=== PATIENT | male | born 1970 | race Hispanic/Latino ===

== ENCOUNTER 2020-04-14 08:10 | Inpatient (IN) | payer MEDICAID, OTHER ==
[~2020-04-14] VITALS: Ht 162.6 cm; Wt 63.2 kg
[2020-04-14] VITALS (7 sets, daily range): BP systolic 111–122; BP diastolic 67–73
[2020-04-14] MEDS ORDERED: PANTOPRAZOLE 40MG VIAL (C9113 PER 1) IV ONE (08:30)
[2020-04-14] MEDS ORDERED: THIAMINE 200MG/2ML VIAL (J3411 PER 100MG) IV SCH (09:00)
[2020-04-14 09:03] LABS: BASO % 0.6 % (0.0-1.0); HEMATOCRIT 27.1 % (42.0-52.0); HEMOGLOBIN 8.6 g/dl (13.5-17.5); LYMPH # 0.9 10^3/uL (1.5-5.0); LYMPH % 14.4 % (24.0-44.0); MEAN CORPUSCULAR HEMOGLOBIN 26.8 pg (27.0-33.0); MEAN CORPUSCULAR HGB CONC 31.7 g/dl (32.0-36.5); MEAN CORPUSCULAR VOLUME 84.4 fl (80.0-96.0); MONO # 0.2 10^3/uL (0.0-0.8); MONO % 3.5 % (0.0-5.0); NEUTROPHILS # 5.1 10^3/uL (1.5-8.5); NEUTROPHILS % 80.9 % (36.0-66.0); PLATELET COUNT, AUTOMATED 106 10^3/uL (150-450); RED BLOOD COUNT 3.21 10^6/uL (4.30-6.10); WHITE BLOOD COUNT 6.3 10^3/uL (4.0-10.0)
[2020-04-14 09:26] LABS: INR 1.37; PROTHROMBIN TIME 17.2 SECONDS (12.5-14.3)
[2020-04-14] MEDS ORDERED: PANT40TA29 PO (09:26)
[2020-04-14 09:28] LABS: ALBUMIN 2.8 GM/DL (3.2-5.2); ALT/SGPT 47 U/L (12-78); BILIRUBIN,DIRECT 0.5 MG/DL (0.0-0.2); BILIRUBIN,TOTAL 0.8 MG/DL (0.2-1.0); CK-MB VALUE MASS < 1.0 NG/ML (<3.6); CPK CREATINE PHOSPHOKINASE 95 U/L (39-308); LIPASE 45 U/L (73-393); MB/CK RELATIVE INDEX 1.05 (< OR =4); TOTAL PROTEIN 7.1 GM/DL (6.4-8.2); TROPONIN I < 0.02 NG/ML (< 0.10)
[2020-04-14] MEDS ORDERED: NS 1,000 ML IV ONE (09:45)
[2020-04-14] MEDS: PANTOPRAZOLE SODIUM 40 MG in D5W 50 ML IV SCH ×4 (09:55→23:23)
[2020-04-14] MEDS ORDERED: LORazepam 2 MG/ML VIAL IV STA (10:02)
[2020-04-14 13:19] LABS: HEMATOCRIT 27.5 % (42.0-52.0); MEAN CORPUSCULAR HEMOGLOBIN 27.2 pg (27.0-33.0); MEAN CORPUSCULAR HGB CONC 32.7 g/dl (32.0-36.5); MEAN CORPUSCULAR VOLUME 83.1 fl (80.0-96.0); RED BLOOD COUNT 3.31 10^6/uL (4.30-6.10); WHITE BLOOD COUNT 7.4 10^3/uL (4.0-10.0)
[2020-04-14 14:08] LABS: PLATELET COUNT, AUTOMATED 84 10^3/uL (150-450)
[2020-04-14] MEDS ORDERED: NS 1,000 ML IV SCH (14:15)
--- NOTE | 2020-04-14 14:35 | REP ---
INDICATION: history of rib facture, acute Pain in same location.. COMPARISON: None. TECHNIQUE: Sitting AP portable exam. FINDINGS: The lungs are symmetrically aerated and clear. The pleural angles are sharp. Heart is not enlarged. Monitoring electrodes are seen. Pulmonary vasculature is not increased.3 no rib or other fractures visible. IMPRESSION: Negative portable chest x-ray. <Electronically signed by Cristi Sharpe > 04/14/20 0473
--- NOTE | 2020-04-14 14:50 | REP ---
INDICATION: upper GI bleed COMPARISON: None. TECHNIQUE: Standard right upper quadrant ultrasound techniques were utilized. FINDINGS: Liver shows diffuse heterogeneous coarse echotexture and I suspect some mild hepatomegaly. There is no discrete hepatic mass, intrahepatic biliary dilatation no adjacent ascites. Gallbladder is adequately filled without stone, sludge, wall thickening or pericholecystic fluid. Common duct is 3.7 mm and without a filling defect or stone. Pancreas is obscured by extensive gas shadowing and cannot be evaluated. The right kidney is 12.5 x 3.7 x 3.3 cm. Normal cortical echogenicity and thickness no mass, hydronephrosis or visible stone. No perinephric fluid. No generalized ascites. IMPRESSION: 1. Diffuse coarsened echotexture and heterogeneous appearance of the liver most consistent with some chronic liver disease. No hepatic mass, intrahepatic biliary dilatation or ascites. Possible hepatomegaly. 2. Gallbladder grossly intact and the common duct 3.7 mm, normal. 3. Pancreas obscured by gas shadowing and cannot be evaluated. 4. Right kidney unremarkable. <Electronically signed by Ankur Alexis > 04/14/20 [id number]
[2020-04-14] MEDS ORDERED: FOLIC ACID 1 MG in NS 50 ML IV SCH (16:00)
[2020-04-14] MEDS ORDERED: LORazepam 2 MG TAB PO PRN (16:15)
[2020-04-14] MEDS: OCTREOTIDE ACETATE 100MCG/ML VIAL (J2354 PER 25MCG) IV SCH ×2 (16:18→23:23)
[2020-04-14] MEDS: cefTRIAXone SOD 1 GM in D5W MINI-BAG PLUS 50 ML IV SCH (16:19)
[2020-04-14] MEDS: MULTIVITAMINS/MINERALS THERAP 1 TAB PO SCH (16:24)
--- NOTE | 2020-04-14 16:24 | HPEPDOC ---
General Date of Admission Apr 14, 2020 at 12:30 Date of Service: Apr 14, 2020 Attending Physician: CLAUDE HERNANDEZ MD Chief Complaint The patient is a 49-year-old male admitted with a reason for visit of Gi Bleed. Source: Patient Exam Limitations: No limitations History of Present Illness Presenting compliant: History of present illness: 49-year-old male patient who presented to the emergency department with complaining of nausea. He reports having multiple episodes of bloody vomiting since yesterday afternoon 3PM to today the morning 3 AM. He says it all started after his hit him in the right chest region while massaging as he was having pain in that region. He reports his last drink of alcohol was about 3pm when all this started. He denies taking any medication, and his hematemesis came down but the nausea persisted. He states he had an similar episode in the past 6 months ago and had an EGD done in [facility]. Reports having one episode of dark stool this morning, prior to this episode also has normal stool. He denies taking NSAIDs or PPI. Pertinent negative symptoms: Denies having Headache, chest pain, abdominal pain, diarrhea, constipation, hematochezia. Past medical history: Has no medical comorbidities Past surgery history: None per patient. Medications history: Does not take any medications, nor over the counter medications. Social history: Reports drinking 1/5th bottle of vodka and 2-3 beers daily since age 18, but didn't drink when he was in [facility] for 8 years. Smokes 5 cigarettes per day since age 16, and smokes marijuana one joint per day since 18years. 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 Family History: Father and mother are healthy, no medical issues. siblings: 2 brothers and 2 sisters: healthy, no medical conditions. 4 sons: healthy Allergies: denies having any. REVIEW OF SYSTEMS: Constitutional: Denies having fever, chills, night sweats, weight loss, headaches. Eyes: Denies any blurry vision or double vision. Cardiovascular: Denies any chest pain or palpitations. Respiratory: Denies shortness of breath and cough. Gastrointestinal (GI): As per H & P Genitourinary: Denies dysuria, hematuria. Musculoskeletal: reports having pain over right lateral chest. Per patient he had #rib in that region. Skin: Denies any rashes or ulcers. Endocrine: Denies cold intolerance, heat intolerance, polydipsia, polyphagia, polyuria All other review of systems is negative. PHYSICAL EXAMINATION: Vital Signs: Temperature: 99.4 Pulse:119 RR:18 BP:119/63 mm Hg Oxygen saturation %: 100 on RA General: Patient is awake, alert, oriented times three, laying in bed , no apparent distress. Noted some dried blood over his right eyebrow patient reports hitting a side table at night when he woke up to vomit. Eyes: Conjunctiva clear, pupils equal round and reactive to light. ENT: Hearing Bilateral normal. No nasal deviation, oropharynx clear with no les ions/erythema. Cardiovascular: S1, S2, normal rhythm, no murmur, rub, or gallop Respiratory: Chest is clear to auscultation bilaterally,No rhonchi, wheezes or rubs. Tenderness on palpation and rolling over in mid thoracic right lateral extending to anterior mid clavicular line. He reports he had a rib# in that region in the past. Abdomen: Soft, bowel sounds positive, no bruits. Nontender on palpation. Liver edge can be felt, spleen, kidney not felt, no masses. Extremities: No clubbing or cyanosis. No edema, no tenderness. 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 Skin: He has multiple hyperpigmented spots in the back, he reports its from acne. No lesions, ulcerations, subcutaneous nodules or induration. Assessment: Mr. Lott is a 49 year old male patient with no known comorbidities presented to the ED due to nausea and multiple episodes of hematemesis in past 24hrs. Plan: Upper GI bleed: 2/2 to PUD vs gastritis vs Jane wolf tear vs oesophageal varices . - Patients Hb was 8.6 and he had 1 unit of blood transfused in ED his repeat CBC shows Hb of 9. - Continue monitoring CBC Q12h, for any drop in Hb and BMP. - His Labs in ED BUN 12, Creatinine 0.7, total bilirubin 0.8, direct 0.5, AST 113, ALT 47, ALP 91. - Will order liver USG to look for any change. - Will start Protonix drip 40mg and Octreotide drip. - Will give ceftriaxone 1gm IV Q24hr for SBP prophylaxis. - Will start thiamine, folic acid and CIWA protocol. - Keep a watch for alcohol withdrawal symptoms. - Will keep him on clear liquid diet for now. - Will start Carafate. - Will get a hepatitis panel to rule out hepatitis A, B or C. - Will get a Cxray as patient was complaining of chest pain and has a rib # in that location. - Patient was made aware he will need a EGD done in order to find out what is the cause of his bleeding, but he refused it. Off note: As patient reports to have similar episode 6 months ago and had EGD done, will try to obtain records to look for if he had any varices then. Home Medications Scheduled Pantoprazole Sodium (Pantoprazole Sodium) 40 Mg Tablet.dr, 40 MG PO BID Allergies Coded Allergies: No Known Allergies (Verified Allergy, Unknown, 04/14/20) A-FIB/CHADSVASC A-FIB History Current/History of A-Fib/PAF?: No Current PO Anticoag Therapy: No Vital Signs Vital Signs Date Time Temp Pulse Resp B/P (MAP) Pulse Ox O2 Delivery O2 Flow Rate FiO2 04/14/20 14:15 99.4 119 18 119/63 (81) 100 Room Air Laboratory Data Labs 24H Laboratory Tests 2 04/14/20 08:30: Immature Granulocyte % (Auto) 0.6, Neutrophils (%) (Auto) 80.9H, Lymphocytes (%) (Auto) 14.4L, Monocytes (%) (Auto) 3.5, Eosinophils (%) (Auto) 0.0, Basophils (%) (Auto) 0.6, Neutrophils # (Auto) 5.1, Lymphocytes # (Auto) 0.9L, Monocytes # (Auto) 0.2, Eosinophils # (Auto) 0.0, Basophils # (Auto) 0.0, Nucleated Red Blood Cells % (auto) 0.0, Prothrombin Time 17.2H, Prothromb Time International Ratio 1.37, Total Bilirubin 0.8, Direct Bilirubin 0.5H, Aspartate Amino Transf (AST/SGOT) 113H, Alanine Aminotransferase (ALT/SGPT) 47, Alkaline Phosphatase 91, Total Creatine Kinase 95, Creatine Kinase MB < 1.0, Creatine Kinase MB R elative Index 1.05, Troponin I < 0.02, Total Protein 7.1, Albumin 2.8L, Albumin/Globulin Ratio 0.7, Lipase 45L 04/14/20 08:52: POC Glucose (Misc Panel) 137H, POC Sodium (Misc Panel) 139, POC Potassium (Misc Panel) 3.6, POC Chloride (Misc Panel) 101, POC Total CO2 (Misc Panel) 23.0, POC Blood Urea Nitrogen (Misc Panel 12, POC Ionized Calcium (Misc Panel) 3.7L, POC Creatinine (Misc Panel) 0.7, POC Hematocrit (Misc Panel) 30.0L 04/14/20 13:03: Nucleated Red Blood Cells % (auto) 0.0, Immature Platelet Fraction 2.0 CBC/BMP Laboratory Tests 04/14/20 08:30 04/14/20 13:03 Plan / VTE VTE Prophylaxis Ordered?: No GME ATTESTATION GME ATTESTATION My faculty preceptor for this patient encounter was physically present during the encounter and was fully available. All aspects of the patient interview, examination, medical decision making process, and medical care plan development were reviewed and approved by the faculty preceptor. The faculty preceptor is aware and concurs with the plan as stated in the body of this note and will attest to such by his/her cosignature. ATTENDING NOTE Patient was seen and examined by me personally with the residents/students. I agree with the above assessment and plan Tato Ruggiero MD Apr 14, 2020 16:24 CLAUDE HERNANDEZ MD Apr 18, 2020 11:46
[2020-04-14] MEDS: SUCRALFATE 1 GM TAB PO SCH ×2 (17:13→23:17)
[2020-04-14 18:40] LABS: HEMATOCRIT 30.3 % (42.0-52.0); HEMOGLOBIN 9.9 g/dl (13.5-17.5); MEAN CORPUSCULAR HEMOGLOBIN 26.9 pg (27.0-33.0); MEAN CORPUSCULAR HGB CONC 32.7 g/dl (32.0-36.5); MEAN CORPUSCULAR VOLUME 82.3 fl (80.0-96.0); RED BLOOD COUNT 3.68 10^6/uL (4.30-6.10); WHITE BLOOD COUNT 7.7 10^3/uL (4.0-10.0)
[2020-04-14 18:42] LABS: PLATELET COUNT, AUTOMATED 66 10^3/uL (150-450)
[2020-04-14 19:47] LABS: HEPATITIS A ANTIBODY IGM NEGATIVE (NEGATIVE); HEPATITIS B CORE ANTIBODY IGM NEGATIVE (NEGATIVE); HEPATITIS B SURFACE ANTIGEN NEGATIVE (NEGATIVE); HEPATITIS C VIRUS ABY INDEX 0.1 INDEX (<0.8)
[2020-04-14] MEDS ORDERED: THIAMINE 100 MG TAB PO SCH (21:00)
[2020-04-15] VITALS (8 sets, daily range): BP systolic 114–146; BP diastolic 59–80
[2020-04-15 02:46] LABS: HEMATOCRIT 27.7 % (42.0-52.0); HEMOGLOBIN 9.2 g/dl (13.5-17.5); MEAN CORPUSCULAR HEMOGLOBIN 26.9 pg (27.0-33.0); MEAN CORPUSCULAR HGB CONC 33.2 g/dl (32.0-36.5); RED BLOOD COUNT 3.42 10^6/uL (4.30-6.10); WHITE BLOOD COUNT 5.8 10^3/uL (4.0-10.0)
[2020-04-15 02:51] LABS: PLATELET COUNT, AUTOMATED 57 10^3/uL (150-450)
[2020-04-15] MEDS: PANTOPRAZOLE SODIUM 40 MG in D5W 50 ML IV SCH ×3 (04:55→15:14)
[2020-04-15] MEDS: SUCRALFATE 1 GM TAB PO SCH ×2 (06:03→12:08)
[2020-04-15] MEDS: OCTREOTIDE ACETATE 100MCG/ML VIAL (J2354 PER 25MCG) IV SCH ×2 (06:03→15:14)
[2020-04-15 07:04] LABS: BASO % 0.4 % (0.0-1.0); EOS # 0.1 10^3/uL (0.0-0.5); EOS % 1.1 % (0.0-3.0); HEMATOCRIT 28.3 % (42.0-52.0); HEMOGLOBIN 9.4 g/dl (13.5-17.5); LYMPH # 1.2 10^3/uL (1.5-5.0); LYMPH % 21.6 % (24.0-44.0); MEAN CORPUSCULAR HEMOGLOBIN 26.9 pg (27.0-33.0); MEAN CORPUSCULAR HGB CONC 33.2 g/dl (32.0-36.5); MEAN CORPUSCULAR VOLUME 81.1 fl (80.0-96.0); MONO # 0.3 10^3/uL (0.0-0.8); MONO % 6.2 % (0.0-5.0); NEUTROPHILS # 3.8 10^3/uL (1.5-8.5); NEUTROPHILS % 70.3 % (36.0-66.0); RED BLOOD COUNT 3.49 10^6/uL (4.30-6.10); WHITE BLOOD COUNT 5.4 10^3/uL (4.0-10.0)
[2020-04-15 07:05] LABS: PLATELET COUNT, AUTOMATED 59 10^3/uL (150-450)
[2020-04-15 07:34] LABS: ALBUMIN 2.4 GM/DL (3.2-5.2); ALT/SGPT 36 U/L (12-78); BILIRUBIN,TOTAL 1.9 MG/DL (0.2-1.0); BLOOD UREA NITROGEN 10 MG/DL (7-18); CALCIUM LEVEL 7.6 MG/DL (8.5-10.1); CARBON DIOXIDE LEVEL 28 MEQ/L (21-32); CHLORIDE LEVEL 100 MEQ/L (98-107); CREATININE FOR GFR 0.76 MG/DL (0.70-1.30); GLOMERULAR FILTRATION RATE > 60.0 (>60); GLUCOSE, FASTING 152 MG/DL (70-100); MAGNESIUM LEVEL 1.5 MG/DL (1.8-2.4); POTASSIUM SERUM 3.6 MEQ/L (3.5-5.1); SODIUM LEVEL 132 MEQ/L (136-145); TOTAL PROTEIN 6.5 GM/DL (6.4-8.2)
[2020-04-15] MEDS: MAG SULF 1GM/100ML (MAG RUN) 1 GM in IV 1 EA IV SCH ×2 (08:50→10:03)
[2020-04-15] MEDS: MULTIVITAMINS/MINERALS THERAP 1 TAB PO SCH (08:50)
[2020-04-15] MEDS ORDERED: FOLIC ACID 1 MG TAB PO SCH ×2 (09:00)
[2020-04-15] MEDS ORDERED: THIAMINE 100 MG TAB PO SCH (09:00)
--- NOTE | 2020-04-15 09:03 | ECGEPIP ---
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
[2020-04-15 14:27] LABS: HEMATOCRIT 32.4 % (42.0-52.0); HEMOGLOBIN 10.5 g/dl (13.5-17.5); MEAN CORPUSCULAR HEMOGLOBIN 26.6 pg (27.0-33.0); MEAN CORPUSCULAR HGB CONC 32.4 g/dl (32.0-36.5); RED BLOOD COUNT 3.95 10^6/uL (4.30-6.10)
[2020-04-15 14:29] LABS: PLATELET COUNT, AUTOMATED 66 10^3/uL (150-450)
[2020-04-15] MEDS: cefTRIAXone SOD 1 GM in D5W MINI-BAG PLUS 50 ML IV SCH (15:14)
[2020-04-15] MEDS ORDERED: PANT40TA29 PO (17:49)
--- NOTE | 2020-04-15 19:25 | DS.PDOC ---
Discharge Summary General Date of Admission Apr 14, 2020 at 12:30 Date of Discharge Apr 15, 2020 at 1800 Patient left AMA. Attending Physician: CLAUDE HERNANDEZ MD Discharge Summary PROCEDURES PERFORMED DURING STAY: None. ADMITTING DIAGNOSES: 1. Upper GI bleed 2. history of GI bleed in the last 6 months DISCHARGE DIAGNOSES: 1. Patient left AMA COMPLICATIONS/CHIEF COMPLAINT: Gi Bleed. HISTORY OF PRESENT ILLNESS: 49-year-old male patient who presented to the emergency department with complaining of nausea. He reports having multiple episodes of bloody vomiting since yesterday afternoon 3PM to today the morning 3 AM. He says it all started after his hit him in the right chest region while massaging as he was having pain in that region. He reports his last drink of alcohol was about 3pm when all this started. He denies taking any medication, and his hematemesis came down but the nausea persisted. He states he had an similar episode in the past 6 months ago and had an EGD done in [facility]. Reports having one episode of dark stool this morning, prior to this episode also has normal stool. He denies taking NSAIDs or PPI. Pertinent negative symptoms: Denies having Headache, chest pain, abdominal pain, diarrhea, constipation, hematochezia. HOSPITAL COURSE: Patient was admitted to the hospital and was started on IV Protonix 40 MG, octreotide drip, as well as antibiotics Rocephin for SBP prophylaxis, and was put on CIWA protocol as patient has a history of heavy alcohol use. Patient had 2 blood transfusions in the ED and had stable hemoglobin overnight without dropping. Patient refused to have the EGD done and reports he had it done recently 6months ago when he had similar episode. He reports it was acid in the stomach caused the bleeding in the past. Patient was on clear liquid diets during the hospital stay. The patient he had an EGD done at [facility] and and trying to get the records for his prior EGD. to rule out variceal bleeding. DISCHARGE MEDICATIONS: Please see below. ALLERGIES: Please see below. PHYSICAL EXAMINATION ON DISCHARGE: VITAL SIGNS: Please see below. General: Patient is awake, alert, oriented times three, laying in bed , no apparent distress. Noted some dried blood over his right eyebrow patient reports hitting a side table at night when he woke up to vomit. Cardiovascular: S1, S2, normal rhythm, no murmur, rub, or gallop Respiratory: Chest is clear to auscultation bilaterally,No rhonchi, wheezes or rubs. Abdomen: Soft, bowel sounds positive, no bruits. Nontender on palpation. Liver edge can be felt, spleen, kidney not felt, no masses. Extremities: No clubbing or cyanosis. No edema, no tenderness. Central nervous system (SUPPLY CHAIN DIRECTOR): Awake, alert and fully oriented. Skin: He has multiple hyperpigmented spots in the back, he reports its from acne. No lesions, ulcerations, subcutaneous nodules or induration. LABORATORY DATA: Please see below. IMAGING: Ultrasound liver 04/14/2020, reported as showing diffuse coarse echotexture and heterogeneous appearance of liver most consistent with some chronic liver disease. No hepatic mass, intrahepatic biliary dilation or ascites. Possible hepatomegaly. Gallbladder grossly intact and common duct 3.7 mmHg, normal. Pancreas obscured by gas she had B and cannot be evaluated. Right kidney unremarkable. PROGNOSIS: Patient left AMA. If patient goes and drinks alcohol he has high chances of bleeding again. ACTIVITY: As tolerated. DIET: Regular diet DISCHARGE PLAN: Patient left AMA DISPOSITION: Patient left Against Medical Advice. DISCHARGE INSTRUCTIONS: 1. Patient left AMA. 2. Patient was advised to avoid/stop drinking alcohol as he is high risk of bleeding again. And patient was made aware that if he bleeds again there is high risk of bleeding to . And was advised to come to emergency department if that happens again. 3. Patient was instructed to follow with PCP in 3-5 days. 4. Patient was Instructed to Protonix 40 mg twice daily to prevent further bleeding if it is a peptic ulcer bleed. ITEMS TO FOLLOWUP ON ON OUTPATIENT: 1. Follow up with your PCP in 3-5 days, then get endoscopy done to rule out variceal bleeding. DISCHARGE CONDITION: Patient left AMA TIME SPENT ON DISCHARGE: Greater than 30 minutes. Vital Signs/I&Os Vital Signs Date Time Temp Pulse Resp B/P (MAP) Pulse Ox O2 Delivery O2 Flow Rate FiO2 04/15/20 14:00 I&O- Last 24 Hours up to 6 AM 04/15/20 06:00 Intake Total 1890 ml Output Total 1100 ml Balance 790 ml Laboratory Data Labs 24H Laboratory Tests 2 04/15/20 02:37: Nucleated Red Blood Cells % (auto) 0.0 04/15/20 06:38: Nucleated Red Blood Cells % (auto) 0.0, Immature Granulocyte % (Auto) 0.4, Neutrophils (%) (Auto) 70.3H, Lymphocytes (%) (Auto) 21.6L, Monocytes (%) (Auto) 6.2H, Eosinophils (%) (Auto) 1.1, Basophils (%) (Auto) 0.4, Neutrophils # (Auto) 3.8, Lymphocytes # (Auto) 1.2L, Monocytes # (Auto) 0.3, Eosinophils # (Auto) 0.1, Basophils # (Auto) 0.0, Anion Gap 4L, Glomerular Filtration Rate > 60.0, Calcium Level 7.6L, Magnesium Level 1.5L, Total Bilirubin 1.9#H, Aspartate Amino Transf (AST/SGOT) 92H, Alanine Aminotransferase (ALT/SGPT) 36, Alkaline Phosphatase 67, Total Protein 6.5, Albumin 2.4L, Albumin/Globulin Ratio 0.6 04/15/20 14:12: Nucleated Red Blood Cells % (auto) 0.0, Magnesium Level 2.2, Immature Platelet Fraction 2.9 CBC/BMP Laboratory Tests 04/15/20 02:37 04/15/20 06:38 04/15/20 14:12 Discharge Medications Scheduled Pantoprazole Sodium (Pantoprazole Sodium) 40 Mg Tablet.dr, 40 MG PO BID Allergies Coded Allergies: No Known Allergies (Verified Allergy, Unknown, 04/14/20) GME ATTESTATION GME ATTESTATION My faculty preceptor for this patient encounter was physically present during the encounter and was fully available. All aspects of the patient interview, examination, medical decision making process, and medical care plan development were reviewed and approved by the faculty preceptor. The faculty preceptor is aware and concurs with the plan as stated in the body of this note and will attest to such by his/her cosignature. ATTENDING NOTE Patient was seen and examined by me personally with the residents/students. I agree with the above assessment and plan Tato Ruggiero MD Apr 15, 2020 19:25 CLAUDE HERNANDEZ MD Apr 18, 2020 11:46
== END 2020-04-15 17:48 | disposition left against medical advice (07) | DRG 253 ==
LOC: EDBD 08:10 → M ED 08:10 → M ED INP 12:30 → ENRESERV 13:21 → M MSPAV 15:40
PROVIDERS: ADMIT Internal Medicine; ATTEND Internal Medicine
PROC: 30233N1 Transfusion of Nonautologous Red Blood Cells into Peripheral Vein, Percutaneous Approach (ICD-10-PCS; principal; 2020-04-14)
DX: K92.2 Gastrointestinal hemorrhage, unspecified (principal); Z79.899 Other long term (current) drug therapy

== ENCOUNTER → 2020-08-18 | Outpatient (REF) | payer MEDICAID, OTHER ==
[~2020-08-18] MED LIST: PANT40TA29 PO
[2020-08-18 12:52] LABS: HEMATOCRIT 28.8 % (42.0-52.0); HEMOGLOBIN 8.6 g/dl (13.5-17.5); MEAN CORPUSCULAR HEMOGLOBIN 23.2 pg (27.0-33.0); MEAN CORPUSCULAR HGB CONC 29.9 g/dl (32.0-36.5); MEAN CORPUSCULAR VOLUME 77.6 fl (80.0-96.0); PLATELET COUNT, AUTOMATED 100 10^3/uL (150-450); RED BLOOD COUNT 3.71 10^6/uL (4.30-6.10); WHITE BLOOD COUNT 5.8 10^3/uL (4.0-10.0)
[2020-08-18 13:28] LABS: ALBUMIN 3.4 GM/DL (3.2-5.2); ALT/SGPT 16 U/L (12-78); BILIRUBIN,TOTAL 0.7 MG/DL (0.2-1.0); BLOOD UREA NITROGEN 6 MG/DL (7-18); CALCIUM LEVEL 8.6 MG/DL (8.5-10.1); CARBON DIOXIDE LEVEL 27 MEQ/L (21-32); CHLORIDE LEVEL 102 MEQ/L (98-107); CREATININE FOR GFR 0.82 MG/DL (0.70-1.30); FERRITIN 7 NG/ML (26-388); GLOMERULAR FILTRATION RATE > 60.0 (>60); GLUCOSE, FASTING 88 MG/DL (70-100); IRON (FE) 26 UG/DL (65-175); PERCENT SATURATION 4.8 % (19.7-50.0); POTASSIUM SERUM 3.8 MEQ/L (3.5-5.1); SODIUM LEVEL 134 MEQ/L (136-145); TOTAL IRON BINDING CAPACITY 547 UG/DL (250-450); TOTAL PROTEIN 7.7 GM/DL (6.4-8.2)
[2020-08-18 13:42] LABS: HEPATITIS B SURFACE ANTIGEN NEGATIVE (NEGATIVE)
[2020-08-18 14:09] LABS: HEPATITIS B CORE ANTIBODY IGM NEGATIVE (NEGATIVE)
[2020-08-18 14:11] LABS: HEPATITIS A ANTIBODY IGM NEGATIVE (NEGATIVE)
[2020-08-19 14:08] LABS: ANTINUCLEAR ANTIBODIES DIRECT Negative (Negative); TISSUE TRANSGLUTAMINASE IgA <2 U/mL (0-3); TISSUE TRANSGLUTAMINASE IgG <2 U/mL (0-5)
== END ==
LOC: M SFHCPLAZ 10:34
PROVIDERS: ATTEND Nurse Practitioner Adult Health
DX: K76.9 Liver disease, unspecified (principal)

== ENCOUNTER → 2020-10-25 | Outpatient (CLI) | payer MEDICAID ==
[~2020-10-25] MED LIST changes: +GASTROGRAFIN SOLUTION 30ML (Q9963) As Ordered ONE; +ISOVUE-370 76% 100ML VIAL As Ordered ONE
--- NOTE | 2020-10-26 04:48 | REP ---
INDICATION: ANEMIA, RECTAL BLEED. COMPARISON: None TECHNIQUE: Axial contrast-enhanced images from the lung bases to the pubic symphysis using oral and 100 cc Isovue 370 intravenous contrast material. . This CT examination was performed using the following dose reduction techniques: Automated exposure control, adjustment of mA and/or kv according to the patient's size, and the use of iterative reconstruction technique. FINDINGS: Liver demonstrates nodular contour along with evidence for portosystemic shunting including recanalized umbilical vein consistent with cirrhosis and portal hypertension. No focal hepatic lesion identified. The spleen is upper limits of normal in size., Pancreas, gallbladder, bilateral adrenal glands and kidneys are normal. The enteric system including stomach, small, and large bowel appears normal. No evidence for obstruction or acute inflammatory process. Normal terminal ileum and appendix are identified in the right lower quadrant. Few scattered colonic diverticula noted without acute diverticulitis. Pelvis demonstrates normal bladder and age-appropriate prostate/seminal vesicles. No ascites. No free air. No intraperitoneal or retroperitoneal adenopathy. Abdominal aorta and vasculature appear normal. Musculoskeletal structures are intact and without acute osseous abnormality. IMPRESSION: No acute abdominopelvic pathology appreciated. Cirrhosis with portal venous hypertension. Few scattered colonic diverticula without acute diverticulitis. <Electronically signed by Kristian Hernandez > 10/26/20 0431
== END ==
LOC: M RAD 14:53
PROVIDERS: ATTEND Internal Medicine Gastroenterology
DX: K74.60 Unspecified cirrhosis of liver (principal); K76.6 Portal hypertension; D50.9 Iron deficiency anemia, unspecified; I85.00 Esophageal varices without bleeding; K62.5 Hemorrhage of anus and rectum
CPT/HCPCS: 74177; Q9963; Q9967

== ENCOUNTER 2021-04-06 13:51 | Day surgery (SDC) | payer MEDICAID ==
[~2021-04-06] VITALS: Ht 162.6 cm; Wt 62.1 kg
[~2021-04-06 13:51] MED LIST changes: -GASTROGRAFIN SOLUTION 30ML (Q9963) As Ordered ONE; -ISOVUE-370 76% 100ML VIAL As Ordered ONE
--- OUTSIDE RECORDS SUMMARY | 2021-04-06 14:00 | CCD ---
Author Author [facility] Organization [facility] Address Unknown Phone Unavailable Care Team Providers Care Tactical Debriefer Name Role Phone LAZARO, ALEJANDRA OTERO Unavailable Unavailable REINDL, ALEJANDRA OTERO Unavailable Unavailable REINDL, ALEJANDRA OTERO Unavailable Unavailable REINDL, ALEJANDRA OTERO Unavailable Unavailable REINDL, ALEJANDRA OTERO Unavailable Unavailable REINDL, ALEJANDRA OTERO Unavailable Unavailable REINDL, ALEJANDRA OTERO Unavailable Unavailable REINDL, ALEJANDRA OTERO Unavailable Unavailable REINDL, ALEJANDRA OTERO Unavailable Unavailable REINDL, ALEJANDRA OTERO Unavailable Unavailable REINDL, ALEJANDRA OTERO Unavailable Unavailable REINDL, ALEJANDRA OTERO Unavailable Unavailable REINDL, ALEJANDRA OTERO Unavailable Unavailable REINDL, ALEJANDRA OTERO Unavailable Unavailable REINDL, ALEJANDRA OTERO Unavailable Unavailable REINDL, ALEJANDRA OTERO Unavailable Unavailable REINDL, ALEJANDRA OTERO Unavailable Unavailable REINDL, ALEJANDRA OTERO Unavailable Unavailable REINDL, ALEJANDRA OTERO Unavailable Unavailable REINDL, ALEJANDRA OTERO Unavailable Unavailable REINDL, ALEJANDRA OTERO Unavailable Unavailable REINDL, ALEJANDRA OTERO Unavailable Unavailable REINDL, ALEJANDRA OTERO Unavailable Unavailable REINDL, ALEJANDRA OTERO Unavailable Unavailable REINDL, ALEJANDRA OTERO Unavailable Unavailable REINDL, ALEJANDRA OTERO Unavailable Unavailable REINDL, ALEJANDRA OTERO Unavailable Unavailable REINDL, ALEJANDRA OTERO Unavailable Unavailable REINDL, ALEJANDRA OTERO Unavailable Unavailable REINDL, ALEJANDRA OTERO Unavailable Unavailable REINDL, ALEJANDRA OTERO Unavailable Unavailable REINDL, ALEJANDRA OTERO Unavailable Unavailable REINDL, ALEJANDRA OTERO Unavailable Unavailable REINDL, ALEJANDRA OTERO Unavailable Unavailable REINDL, ALEJANDRA OTERO Unavailable Unavailable REINDL, ALEJANDRA OTERO Unavailable Unavailable REINDL, ALEJANDRA OTERO Unavailable Unavailable REINDL, ALEJANDRA OTERO Unavailable Unavailable REINDL, ALEJANDRA OTERO Unavailable Unavailable REINDL, ALEJANDRA OTERO Unavailable Unavailable REINDL, ALEJANDRA OTERO Unavailable Unavailable REINDL, ALEJANDRA OTERO Unavailable Unavailable Re-disclosure Warning The records that you are about to access may contain information from federally-assisted alcohol or drug abuse programs. If such information is present, then the following federally mandated warning applies: This information has been disclosed to you from records protected by federal confidentiality rules (42 CFR part 2). The federal rules prohibit you from making any further disclosure of this information unless further disclosure is expressly permitted by the written consent of the person to whom it pertains or as otherwise permitted by 42 CFR part 2. A general authorization for the release of medical or other information is NOT sufficient for this purpose. The Federal rules restrict any use of the information to criminally investigate or prosecute any alcohol or drug abuse patient.The records that you are about to access may contain highly sensitive health information, the redisclosure of which is protected by Article 27-F of the [facility] Public Health law. If you continue you may have access to information: Regarding HIV / AIDS; Provided by facilities licensed or operated by the [facility] Office of Mental Health; or Provided by the [facility] Office for People With Developmental Disabilities. If such information is present, then the following [facility] mandated warning applies: This information has been disclosed to you from confidential records which are protected by state law. State law prohibits you from making any further disclosure of this information without the specific written consent of the person to whom it pertains, or as otherwise permitted by law. Any unauthorized further disclosure in violation of state law may result in a fine or senior living sentence or both. A general authorization for the release of medical or other information is NOT sufficient authorization for further disc losure. Encounters Encounter Providers Location Date Indications Data Source(s ) Unknown [address] [facility] [place] [address] 01/02/2021 12:00:00 AM EDT eCW1 ([facility]) Unknown [address] [facility] [place] [address] 11/03/2020 12:00:00 AM EDT eCW1 ([facility]) Outpatient Attender: ALEJANDRA Saleem/Tricia/Erlin/Hanh lion 10/11/2020 09:30:00 AM EDT [facility] ([facility]) [place] [address] [facility] [address] 09/30/2020 12:00:00 AM EDT eCW1 ([facility]) Unknown [address] [facility] [place] [address] 08/30/2020 12:00:00 AM EDT eCW1 ([facility]) Outpatient 08/24/2020 04:05:36 PM EDT [facility] ([facility]) Outpatient 08/24/2020 04:13:29 AM EDT [facility] ([facility]) [place]patient [address] [facility] [address] 08/18/2020 12:00:00 AM EST eCW1 ([facility]) Immunizations Vaccine Date Status Description Data Source(s) COVID-19 VACC, MRNA(PFIZER)/PF 01/26/2021 12:00:00 AM EDT completed [facility] COVID-19 VACCINE Pfizer 01/26/2021 12:00:00 AM EDT completed [facility] Vaccine Series Complete: YESThis Data wa s Submitted to [facility]. COVID-19 VACCINE Pfizer 01/05/2021 12:00:00 AM EDT completed [facility] Vaccine Series Complete: NOThis Data was Submitted to [facility] [employer]. COVID-19 VACC, MRNA(PFIZER)/PF 01/05/2021 12:00:00 AM EDT completed [facility] Medications Medication Brand Name Start Date Product Form Dose Route Admi nistrative Instructions Pharmacy Instructions Status Indications Reaction Description Data Source(s) pantoprazole 40 MG Delayed Release Oral Tablet PANTOPRAZOLE SODIUM 01/03/2021 12:00:00 AM EDT tablet,delayed release (DR/EC) 30 T MABEL ONE TABLET BY MOUTH EVERY DAY TAKE ONE TABLET BY MOUTH EVERY DAY SOLD: 02/06/2021 [facility] pantoprazole 40 MG Delayed Release Oral Tablet PANTOPRAZOLE SODIUM 01/03/2021 12:00:00 AM EDT tablet,delayed release (DR/EC) 30 T MABEL ONE TABLET BY MOUTH EVERY DAY TAKE ONE TABLET BY MOUTH EVERY DAY SOLD: 01/03/2021 [facility] carvedilol 3.125 MG Oral Tablet CARVEDILOL 11/09/2020 12:00:00 AM EDT tablet 60 TAKE ONE TABLET BY MOUTH TWICE A DAY WITH FOOD TAKE ON E TABLET BY MOUTH TWICE A DAY WITH FOOD SOLD: 01/26/2021 [facility] carvedilol 3.125 MG Oral Tablet CARVEDILOL 11/09/2020 12:00:00 AM EDT tablet 60 TAKE ONE TABLET BY MOUTH TWICE A DAY WITH FOOD TAKE ON E TABLET BY MOUTH TWICE A DAY WITH FOOD SOLD: 11/09/2020 [facility] carvedilol 3.125 MG Oral Tablet CARVEDILOL 11/09/2020 12:00:00 AM EDT tablet 60 TAKE ONE TABLET BY MOUTH TWICE A DAY WITH FOOD TAKE ON E TABLET BY MOUTH TWICE A DAY WITH FOOD SOLD: 12/20/2020 [facility] 20 mg 10/14/2020 12:00:00 AM EDT tablet,delayed release (DR/EC) 60 TAKE ONE TABLET BY MOUTH TWICE A DAY TAKE ONE TABLET BY MOUTH TWICE A DAY SOLD: 10/14/2020 [facility] 17 gram/dose 10/12/2020 12:00:00 AM EDT powder [address] WILLIS FOR COLON PREPARTATION INSTRUCTIONS USE DIRECTED BY DR WILLIS FOR COLON PREPARTATION INSTRUCTIONS SOLD: 10/14/2020 [facility] magnesium citrate 58.2 MG/ML Oral Solution Magnesium Citrate 10/11/2020 12:00:00 AM EDT active MEDENT ([facility], ) pantoprazole 20 MG Delayed Release Oral Tablet Pantoprazole Sodium 10/11/2020 12:00:00 AM EDT active M EDENT ([facility], ) POLYETHYLENE GLYCOL 3350 142 MG/ML Oral Solution [Miralax] M iralax 10/11/2020 12:00:00 AM EDT active EDENT ([facility], ) 324 mg (65 mg iron) 08/22/2020 12:00:00 AM EDT tablet, delayed release (DR/EC) 30 TAKE ONE TABLET BY MOUTH EVERY DAY TAKE ONE TABL ET BY MOUTH EVERY DAY SOLD: 08/24/2020 [facility] Ferrous Sulfate 324 MG Ferrous Sulfate 324 MG 08/22/2020 12:00:00 A M EDT 1.0 {tablet} active Ferrous Sulfate 324 MG eCW1 ([facility]) Ferrous Sulfate 324 MG Ferrous Sulfate 324 MG 08/22/2020 12:00:00 A M EDT 1.0 {tablet} active Ferrous Sulfate 324 MG eCW1 ([facility]) Ferrous Sulfate 324 MG Ferrous Sulfate 324 MG 08/22/2020 12:00:00 A M EDT 1.0 {tablet} active Ferrous Sulfate 324 MG eCW1 ([facility]) Ferrous Sulfate 324 MG Ferrous Sulfate 324 MG 08/22/2020 12:00:00 A M EDT 1.0 {tablet} active Ferrous Sulfate 324 MG eCW1 ([facility]) Ferrous Sulfate 324 MG Ferrous Sulfate 324 MG 08/22/2020 12:00:00 A M EDT 1.0 {tablet} active Ferrous Sulfate 324 MG eCW1 ([facility]) 1 mg 08/18/2020 12:00:00 AM EST tablet 30 TAKE ONE TABLET BY MOUTH EVERY DAY TAKE ONE TABLET BY MOUTH EVERY DAY SOLD: 09/26/2020 [facility] 1 mg 08/18/2020 12:00:00 AM EST tablet 30 TAKE ONE TABLET BY MOUTH EVERY DAY TAKE ONE TABLET BY MOUTH EVERY DAY SOLD: 08/19/2020 [facility] pantoprazole 40 MG Delayed Release Oral Tablet PANTOPRAZOLE SODIUM 08/06/2020 12:00:00 AM EST tablet,delayed release (DR/EC) 30 T MABEL ONE TABLET BY MOUTH EVERY MORNING BEFORE BREAKFAST TAKE ONE TABLET BY MOUTH EVERY MORNING B EFORE BREAKFAST SOLD: 08/10/2020 [facility] Insurance Providers Payer name Policy type / Coverage type Policy ID Covered libertarian ID Covered libertarian's relationship to garvin Policy Garvin Plan Information [facility] [facility] [id number] SP [id number] [facility] Medicaid CI [id number] SELF [id number] SP [id number] [employer] O [id number] S [id number] [employer] [id number] SP [id number] [facility] [id number] SP [id number] [place] [id number] SP [id number] Problems, Conditions, and Diagnoses Code Display Name Description Problem Type Effective Dates Data Source(s) F10.10 [id number] ETOH abuse Problem 08/18/2020 12:00:00 AM ES T eCW1 ([facility]) K76.9 [id number] Chronic liver disease Problem 08/18/2020 12: 00:00 AM EST eCW1 ([facility]) R42 [id number] Dizzy spells Problem 08/18/2020 12:00:00 AM EST eCW1 ([facility]) Z87.19 [id number] History of upper gastrointestinal bleedin g Problem 08/18/2020 12:00:00 AM EST eCW1 ([facility]) F17.200 [id number] Smoker Problem 08/18/2020 12:00:00 AM ES T eCW1 ([facility]) F41.9 [id number] Anxiety Problem 08/18/2020 12:00:00 AM ES T eCW1 ([facility]) Surgeries/Procedures No Information Results ID Date Data Source Immature Platelet Fraction 08/18/2020 12:00:00 AM EST eCW1 ( [facility]) Name Value Range Interpretation Code Description Data Mariia rce(s) Supporting Document(s) 2.5 0.0-10.91 IMMATURE PLATELET FRACTIO N % eCW1 ([facility]) ID Date Data Source HEPATITIS PROFILE ACUTE 08/18/2020 12:00:00 AM EST eCW1 (Count includes the [facility]) Name Value Range Interpretation Code Description Data Mariia rce(s) Supporting Document(s) NEGATIVE NEGATIVE HEPATITIS B SURFACE ANTIG EN eCW1 ([facility]) 0.0 <0.8 HEPATITIS C VIRUS JOSUE INDEX eC W1 ([facility]) NEGATIVE NEGATIVE HEPATITIS B CORE ANTIBODY IGM eCW1 ([facility]) NEGATIVE NEGATIVE HEPATITIS A ANTIBODY IGM eCW1 ([facility]) ID Date Data Source Comprehensive Metabolic Profile (CMP) 08/18/2020 12:00:00 AM EST eCW1 ([facility]) Name Value Range Interpretation Code Description Data Mariia rce(s) Supporting Document(s) 88 70-100 GLUCOSE, FASTING eCW1 ([facility]) 6 7-18 BLOOD UREA NITROGEN eCW1 ([facility]) 0.82 0.70-1.30 CREATININE FOR GFR eCW1 ([facility]) 134 136-145 SODIUM LEVEL eCW1 ([facility]) > 60.0 >60 GLOMERULAR FILTRATION RATE eCW 1 ([facility]) 3.8 3.5-5.1 POTASSIUM SERUM eCW1 ([facility]) 8.6 8.5-10.1 CALCIUM LEVEL eCW1 ([facility]) 102 98-107 CHLORIDE LEVEL eCW1 ([facility]) 27 21-32 CARBON DIOXIDE LEVEL eCW1 ([facility] includes the [facility]) 25 7-37 AST/SGOT eCW1 ([facility]) 79 45-117 ALKALINE PHOSPHATASE eCW1 ([facility] includes the [facility]) 16 12-78 ALT/SGPT eCW1 ([facility]) 0.7 0.2-1.0 BILIRUBIN,TOTAL eCW1 ([facility]) 7.7 6.4-8.2 TOTAL PROTEIN eCW1 ([facility]) 0.8 ALBUMIN/GLOBULIN RATIO eCW1 ([facility]) 3.4 3.2-5.2 ALBUMIN eCW1 ([facility]) ID Date Data Source TOTAL IRON BINDING CAPACIT 08/18/2020 12:00:00 AM EST eCW1 ( [facility]) Name Value Range Interpretation Code Description Data Mariia rce(s) Supporting Document(s) 26 65-175 IRON (FE) eCW1 ([facility]) 547 250-450 TOTAL IRON BINDING CAPACI TY eCW1 ([facility]) 4.8 19.7-50.0 PERCENT SATURATION eCW1 ([facility]) ID Date Data Source FERRITIN 08/18/2020 12:00:00 AM EST eCW1 ([facility]) Name Value Range Interpretation Code Description Data Mariia rce(s) Supporting Document(s) 7 26-388 FERRITIN eCW1 ([facility]) ID Date Data Source CBC - Complete Blood Count 08/18/2020 12:00:00 AM EST eCW1 ( [facility]) Name Value Range Interpretation Code Description Data Mariia rce(s) Supporting Document(s) 5.8 4.0-10.0 WHITE BLOOD COUNT eCW1 ([facility]) 8.6 13.5-17.5 HEMOGLOBIN eCW1 ([facility]) 28.8 42.0-52.0 HEMATOCRIT eCW1 ([facility]) 3.71 4.30-6.10 RED BLOOD COUNT eCW1 ([facility]) 77.6 80.0-96.0 MEAN CORPUSCULAR VOLUME e CW1 ([facility]) 29.9 32.0-36.5 MEAN CORPUSCULAR HGB CONC eCW1 ([facility]) 23.2 27.0-33.0 MEAN CORPUSCULAR HEMOGLOB IN eCW1 ([facility]) 100 150-450 PLATELET COUNT, AUTOMATED eCW1 ([facility]) 20.2 11.5-14.5 RED CELL DISTRIBUTION WID TH eCW1 ([facility]) ID Date Data Source URBAN 08/18/2020 12:00:00 AM EST eCW1 ([facility]) Name Value Range Interpretation Code Description Data Mariia rce(s) Supporting Document(s) Negative Negative ANTINUCLEAR ANTIBODIES DI RECT eCW1 ([facility]) ID Date Data Source ALPHA FETOPROTEIN TUMOR QUANT 08/18/2020 12:00:00 AM EST eCW 1 ([facility]) Name Value Range Interpretation Code Description Data Mariia rce(s) Supporting Document(s) 3.4 <8.1 ALPHA FETOPROTEIN TUMOR Q UANT eCW1 ([facility]) ID Date Data Source t-Transglutaminase (tTG) IgG 08/18/2020 12:00:00 AM EST eCW1 ([facility]) Name Value Range Interpretation Code Description Data Mariia rce(s) Supporting Document(s) Tissue transglutaminase IgG Ab [Units/volume] in Serum <2 0-5 TISSUE TRANSGLUTAMINASE IgG eCW1 ([facility]) ID Date Data Source t-Transglutaminase (tTG) IgA 08/18/2020 12:00:00 AM EST eCW1 ([facility]) Name Value Range Interpretation Code Description Data Mariia rce(s) Supporting Document(s) Tissue transglutaminase IgA Ab [Units/volume] in Serum <2 0-3 TISSUE TRANSGLUTAMINASE IgA eCW1 ([facility]) ID Date Data Source [id number] 07/01/2020 11:21:00 AM EST [facility] Name Value Range Interpretation Code Description Data Mariia rce(s) Supporting Document(s) SARS CORONAVIRUS 2 RNA:PRTHR:PT:RESPIRATORY:ORD:PROBE.AMP.TAR Not D etected [facility] This lab was ordered by [facility] a nd reported by [facility]. Procedure Social History Code Duration Value Status Description Data Source(s ) Smoking 08/19/2020 12:00:00 AM EST Current Smoker completed Curre nt Smoker eCW1 ([facility]) Smoking 08/19/2020 12:00:00 AM EST Current Smoker completed Curre nt Smoker eCW1 ([facility]) Smoking 08/19/2020 12:00:00 AM EST Current Smoker completed Curre nt Smoker eCW1 ([facility]) Smoking 08/19/2020 12:00:00 AM EST Current Smoker completed Curre nt Smoker eCW1 ([facility]) Smoking 08/19/2020 12:00:00 AM EST Current Smoker completed Curre nt Smoker eCW1 ([facility]) Vital Signs ID Date Data Source UNK Name Value Range Interpretation Code Description Data Source(s) Systolic blood pressure 115 mm[Hg] 115 mm[Hg] [facility] Diastolic blood pressure 65 mm[Hg] 65 mm[Hg] [facility] ([facility]) Body height 64 [in_i] 64 [in_i] [facility] ([facility]) 5'4" Body weight 140.00 [lb_av] 140.00 [lb_av] [facility] Body mass index (BMI) [Ratio] 24.0 kg/m2 24.0 k g/m2 [facility] ([facility]) [place] body weight 130 [lb_av] 130 [lb_av] [facility] Body weight 63.504 kg 63.504 kg [facility] ([facility]) Body surface area Derived from formula 1.68 m2 1.68 m2 [facility] ([facility], ) Body weight 143.2 [lb_av] 143.2 [lb_av] eCW1 ([facility]) Body height 64 [in_i] 64 [in_i] eCW1 ([facility]) Body mass index (BMI) [Ratio] 24.58 kg/m2 24.58 kg/m2 eCW1 ([facility]) Heart rate 90 /min 90 /min eCW1 ([facility]) Respiratory rate 18 /min 18 /min eCW1 ([facility]) Body temperature 98.6 [degF] 98.6 [degF] eCW1 ( [facility]) Systolic blood pressure 102 mm[Hg] 102 mm[Hg] e CW1 ([facility]) Diastolic blood pressure 60 mm[Hg] 60 mm[Hg] eCW1 ([facility]) Patient Treatment Plan of Care Planned Activity Planned Date Details Description Data Source (s) Ferrous Sulfate 324 MG 08/22/2020 12:00:00 AM EDT eCW1 ([facility]) Ferrous Sulfate 324 MG 08/22/2020 12:00:00 AM EDT eCW1 ([facility]) Ferrous Sulfate 324 MG 08/22/2020 12:00:00 AM EDT eCW1 ([facility]) Ferrous Sulfate 324 MG 08/22/2020 12:00:00 AM EDT eCW1 ([facility]) Ferrous Sulfate 324 MG 08/22/2020 12:00:00 AM EDT eCW1 ([facility])
[2021-04-06] MEDS ORDERED: GLUCAGON INJ 1MG VIAL IV STA (14:15)
[2021-04-06] MEDS ORDERED: CARV3.12 PO (14:15)
--- OUTSIDE RECORDS SUMMARY | 2021-04-06 14:43 | CCD ---
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 If you continue you may have access to information: Regarding HIV / AIDS; Provided by facilities licensed or operated by the [facility] Office of Mental Health; or Provided by the [facility] Office for People With Developmental Disabilities. If such information is present, then the following [facility] mandated warning applies: This information has been [...] law may result in a fine or care home sentence or both. A general authorization for the release of medical or other information is NOT sufficient authorization for further disc losure. Encounters Encounter Providers Location Date Indications Data Source(s ) Unknown [address] [facility] [place] [address] 01/02/2021 12:00:00 AM EDT eCW1 (Replaced by [facility]) Unknown [address] [facility] [place] [address] 11/03/2020 12:00:00 AM EDT eCW1 (Replaced by [facility]) Outpatient Attender: ALEJANDRA Saleem/Tricia/Erlin/Hanh lion 10/11/2020 09:30:00 AM EDT [facility] ([facility]) Unknown [address] [facility] [place] [address] 09/30/2020 12:00:00 AM EDT eCW1 (Replaced by [facility]) Unknown [address] [facility] [place] [address] 08/30/2020 12:00:00 AM EDT eCW1 (Replaced by [facility]) Outpatient 08/24/2020 04:05:36 PM EDT [facility] ([facility]) Outpatient 08/24/2020 04:13:29 AM EDT [facility] ([facility]) Outpatient [address] [facility] [address] 08/18/2020 12:00:00 AM EST eCW1 (Replaced by [facility]) Immunizations Vaccine Date Status Description Data Source(s) COVID-19 VACC, MRNA(PFIZER)/PF 01/26/2021 12:00:00 AM EDT completed [facility] COVID-19 VACCINE Pfizer 01/26/2021 12:00:00 AM EDT completed [facility] Vaccine Series Complete: YESThis Data wa s Submitted to [facility] [employer]. COVID-19 VACCINE Pfizer 01/05/2021 12:00:00 AM EDT completed [facility] Vaccine Series Complete: NOThis Data was Submitted to [facility] [employer]. COVID-19 VACC, MRNA(PFIZER)/PF 01/05/2021 12:00:00 AM EDT [...] FOR COLON PREPARTATION INSTRUCTIONS SOLD: 10/14/2020 [facility] magnesium citrate 58.2 MG/ML Oral Solution Magnesium Citrate 10/11/2020 12:00:00 AM EDT active MED[facility] ([facility], ) pantoprazole 20 MG Delayed Release Oral Tablet Pantoprazole Sodium 10/11/2020 12:00:00 AM EDT active M [facility] POLYETHYLENE GLYCOL 3350 142 MG/ML Oral Solution [Miralax] M iralax 10/11/2020 12:00:00 AM EDT active [facility] ([facility] ) 324 mg (65 mg iron) 08/22/2020 12:00:00 AM EDT tablet, delayed release (DR/EC) 30 TAKE ONE TABLET BY MOUTH EVERY DAY TAKE ONE TABL ET BY MOUTH EVERY DAY SOLD: 08/24/2020 [facility] Ferrous Sulfate 324 MG Ferrous Sulfate 324 MG 08/22/2020 12:00:00 A M EDT 1.0 {tablet} active Ferrous Sulfate 324 MG eCW1 ([facility]) Ferrous Sulfate 324 MG Ferrous Sulfate 324 MG 08/22/2020 12:00:00 A M EDT 1.0 {tablet} active Ferrous Sulfate 324 MG eCW1 ([facility]) Ferrous Sulfate 324 MG Ferrous Sulfate 324 MG 08/22/2020 12:00:00 A M EDT 1.0 {tablet} active Ferrous Sulfate 324 MG eCW1 ([facility]) Ferrous Sulfate 324 MG Ferrous Sulfate 324 MG 08/22/2020 12:00:00 A M EDT 1.0 {tablet} active Ferrous Sulfate 324 MG eCW1 ([facility]) Ferrous Sulfate 324 MG Ferrous Sulfate 324 MG 08/22/2020 12:00:00 A M EDT 1.0 {tablet} active Ferrous Sulfate 324 MG eCW1 ([facility]) 1 mg 08/18/2020 12:00:00 AM [...] type / Coverage type Policy ID Covered green party ID Covered green party's relationship to garvin Policy Garvin Plan Information [facility] PH[facility] [id number] SP [id number] [facility] Medicaid CI [id number] SELF [id number] SP [id number] [employer] O [id number] S [id number] [employer] [id number] SP [id number] [place] [id number] SP [id number] [place] [id number] SP [id number] Problems, Conditions, and Diagnoses Code Display Name Description Problem Type Effective Dates Data Source(s) F10.10 [id number] ETOH abuse Problem 08/18/2020 12:00:00 AM ES T eCW1 ([facility]) K76.9 [id number] Chronic liver disease Problem 08/18/2020 12: 00:00 AM EST eCW1 ([facility]) R42 [id number] Dizzy spells Problem 08/18/2020 12:00:00 AM EST eCW1 ([facility]) Z87.19 [id number] History of upper gastrointestinal bleedin g Problem 08/18/2020 12:00:00 AM EST eCW1 ([facility]) F17.200 [id number] Smoker Problem 08/18/2020 12:00:00 AM ES T eCW1 ([facility]) F41.9 [id number] Anxiety Problem 08/18/2020 12:00:00 AM ES T eCW1 ([facility]) Surgeries/Procedures No Information Results ID Date Data Source Immature Platelet Fraction 08/18/2020 12:00:00 AM EST eCW1 ( [facility]) Name Value Range Interpretation Code Description Data Mariia rce(s) Supporting Document(s) 2.5 0.0-10.91 IMMATURE PLATELET FRACTIO N % eCW1 ([facility]) ID Date Data Source HEPATITIS PROFILE ACUTE 08/18/2020 12:00:00 AM EST eCW1 ([facility]) Name Value Range Interpretation Code Description Data Mariia rce(s) Supporting Document(s) NEGATIVE NEGATIVE HEPATITIS B SURFACE ANTIG EN eCW1 ([facility]) 0.0 <0.8 HEPATITIS C VIRUS JOSUE INDEX eC W1 ([facility]) NEGATIVE NEGATIVE HEPATITIS B CORE ANTIBODY IGM eCW1 ([facility]) NEGATIVE NEGATIVE HEPATITIS A ANTIBODY IGM eCW1 ([facility]) ID Date Data Source Comprehensive Metabolic Profile (CMP) 08/18/2020 12:00:00 AM EST eCW1 ([facility]) Name Value Range Interpretation Code Description Data Mariia rce(s) Supporting Document(s) 88 70-100 GLUCOSE, FASTING eCW1 ([facility]) 6 7-18 BLOOD UREA NITROGEN eCW1 ([facility]) 0.82 0.70-1.30 CREATININE FOR GFR eCW1 ([facility]) 134 136-145 SODIUM LEVEL eCW1 ([facility]) > 60.0 >60 GLOMERULAR FILTRATION RATE eCW 1 ([facility]) 3.8 3.5-5.1 POTASSIUM SERUM eCW1 ([facility]) 8.6 8.5-10.1 CALCIUM LEVEL eCW1 ([facility]) 102 98-107 CHLORIDE LEVEL eCW1 ([facility]) 27 21-32 CARBON DIOXIDE LEVEL eCW1 ([facility]) 25 7-37 AST/SGOT eCW1 ([facility]) 79 45-117 ALKALINE PHOSPHATASE eCW1 ([facility]) 16 12-78 ALT/SGPT eCW1 ([facility]) 0.7 0.2-1.0 BILIRUBIN,TOTAL eCW1 ([facility]) 7.7 6.4-8.2 TOTAL PROTEIN eCW1 ([facility]) 0.8 ALBUMIN/GLOBULIN RATIO eCW1 (Formerly [facility]) 3.4 3.2-5.2 ALBUMIN eCW1 ([facility]) ID Date Data Source TOTAL IRON BINDING CAPACIT 08/18/2020 12:00:00 AM EST eCW1 ( [facility]) Name Value Range Interpretation Code Description Data Mariia rce(s) Supporting Document(s) 26 65-175 IRON (FE) eCW1 ([facility]) 547 250-450 TOTAL IRON BINDING CAPACI TY eCW1 ([facility]) 4.8 19.7-50.0 PERCENT SATURATION eCW1 ([facility]) ID Date Data Source FERRITIN 08/18/2020 12:00:00 AM EST eCW1 ([facility]) Name Value Range Interpretation Code Description Data Mariia rce(s) Supporting Document(s) 7 26-388 FERRITIN eCW1 ([facility]) ID Date Data Source CBC - Complete Blood Count 08/18/2020 12:00:00 AM EST eCW1 ( [facility]) Name Value Range Interpretation Code Description Data Mariia rce(s) Supporting Document(s) 5.8 4.0-10.0 WHITE BLOOD COUNT eCW1 ([facility]) 8.6 13.5-17.5 HEMOGLOBIN eCW1 ([facility]) 28.8 42.0-52.0 HEMATOCRIT eCW1 ([facility]) 3.71 4.30-6.10 RED BLOOD COUNT eCW1 ([facility]) 77.6 80.0-96.0 MEAN CORPUSCULAR VOLUME e CW1 ([facility]) 29.9 32.0-36.5 MEAN CORPUSCULAR HGB CONC eCW1 ([facility]) 23.2 27.0-33.0 MEAN CORPUSCULAR HEMOGLOB IN eCW1 ([facility]) 100 150-450 PLATELET COUNT, AUTOMATED eCW1 ([facility]) 20.2 11.5-14.5 RED CELL DISTRIBUTION WID TH eCW1 ([facility]) ID Date Data Source URBAN 08/18/2020 12:00:00 AM EST eCW1 ([facility]) Name Value Range Interpretation Code Description Data Mariia rce(s) Supporting Document(s) Negative Negative ANTINUCLEAR ANTIBODIES DI RECT eCW1 ([facility]) ID Date Data Source ALPHA FETOPROTEIN TUMOR QUANT 08/18/2020 12:00:00 AM EST eCW 1 ([facility]) Name Value Range Interpretation Code Description Data Mariia rce(s) Supporting Document(s) 3.4 <8.1 ALPHA FETOPROTEIN TUMOR Q UANT eCW1 ([facility]) ID Date Data Source t-Transglutaminase (tTG) IgG 08/18/2020 12:00:00 AM EST eCW1 ([facility]) Name Value Range Interpretation Code Description Data Mariia rce(s) Supporting Document(s) Tissue transglutaminase IgG Ab [Units/volume] in Serum <2 0-5 TISSUE TRANSGLUTAMINASE IgG eCW1 ([facility]) ID Date Data Source t-Transglutaminase (tTG) IgA 08/18/2020 12:00:00 AM EST eCW1 ([facility]) Name Value Range Interpretation Code Description Data Mariia rce(s) Supporting Document(s) Tissue transglutaminase IgA Ab [Units/volume] in Serum <2 0-3 TISSUE TRANSGLUTAMINASE IgA eCW1 ([facility]) ID Date Data Source [id number] 07/01/2020 11:21:00 AM EST [facility] Name Value Range Interpretation Code Description Data Mariia rce(s) Supporting Document(s) SARS CORONAVIRUS 2 RNA:PRTHR:PT:RESPIRATORY:ORD:PROBE.AMP.TAR Not D etected [facility] This lab was ordered by [facility] a nd reported by [facility]. Procedure Social History Code Duration Value Status Description Data Source(s ) Smoking 08/19/2020 12:00:00 AM EST Current Smoker completed Curre nt Smoker eCW1 ([facility]) Smoking 08/19/2020 12:00:00 AM EST Current Smoker completed Curre nt Smoker eCW1 ([facility]) Smoking 08/19/2020 12:00:00 AM EST Current Smoker completed Curre nt Smoker eCW1 ([facility]) Smoking 08/19/2020 12:00:00 AM EST Current Smoker completed Curre nt Smoker eCW1 ([facility]) Smoking 08/19/2020 12:00:00 AM EST Current Smoker completed Curre nt Smoker eCW1 ([facility]) Vital Signs ID Date Data Source UNK Name Value Range Interpretation Code Description Data Source(s) Systolic blood pressure 115 mm[Hg] 115 mm[facility]Hg[facility] Diastolic blood pressure 65 mm[Hg] 65 mm[Hg] [facility] ([facility]) Body height 64 [in_i] 64 [in_i] [facility] ([facility]) 5'4" Body weight 140.00 [lb_av] 140.00 [lb_av] [facility]) Body mass index (BMI) [Ratio] 24.0 kg/m2 24.0 k g/m2 [facility] ([facility]) [place] body weight 130 [lb_av] 130 [lb_av] [facility] ([facility]) Body weight 63.504 kg 63.504 kg [facility] ([facility]) Body surface area Derived from formula 1.68 m2 1.68 m2 [facility] ([facility], ) Body weight 143.2 [lb_av] 143.2 [lb_av] eCW1 ([facility]) Body height 64 [in_i] 64 [in_i] eCW1 ([facility]) Body mass index (BMI) [Ratio] 24.58 kg/m2 24.58 kg/m2 eCW1 ([facility]) Heart rate 90 /min 90 /min eCW1 ([facility]) Respiratory rate 18 /min 18 /min eCW1 ([facility]) Body temperature 98.6 [degF] 98.6 [degF] eCW1 ( [facility]) Systolic blood pressure 102 mm[Hg] 102 mm[Hg] e CW1 ([facility]) Diastolic blood pressure 60 mm[Hg] 60 mm[Hg] eCW1 ([facility]) Patient Treatment Plan of Care Planned Activity Planned Date Details Description Data Source (s) Ferrous Sulfate 324 MG 08/22/2020 12:00:00 AM EDT eCW1 ([facility]) Ferrous Sulfate 324 MG 08/22/2020 12:00:00 AM EDT eCW1 ([facility]) Ferrous Sulfate 324 MG 08/22/2020 12:00:00 AM EDT eCW1 ([facility]) Ferrous Sulfate 324 MG 08/22/2020 12:00:00 AM EDT eCW1 ([facility]) Ferrous Sulfate 324 MG 08/22/2020 12:00:00 AM EDT eCW1 ([facility])
[2021-04-06 15:00] LABS: HEMATOCRIT 31.8 % (42.0-52.0); HEMOGLOBIN 9.3 g/dl (13.5-17.5); MEAN CORPUSCULAR HEMOGLOBIN 21.2 pg (27.0-33.0); MEAN CORPUSCULAR HGB CONC 29.2 g/dl (32.0-36.5); MEAN CORPUSCULAR VOLUME 72.6 fl (80.0-96.0); RED BLOOD COUNT 4.38 10^6/uL (4.30-6.10); WHITE BLOOD COUNT 5.7 10^3/uL (4.0-10.0)
[2021-04-06 15:01] LABS: BASO % 0.5 % (0.0-1.0); EOS # 0.1 10^3/uL (0.0-0.5); EOS % 0.9 % (0.0-3.0); LYMPH # 1.3 10^3/uL (1.5-5.0); LYMPH % 23.1 % (24.0-44.0); MONO # 0.7 10^3/uL (0.0-0.8); MONO % 12.2 % (2.0-8.0); NEUTROPHILS # 3.6 10^3/uL (1.5-8.5); NEUTROPHILS % 62.9 % (36.0-66.0); PLATELET COUNT, AUTOMATED 118 10^3/uL (150-450)
[2021-04-06 15:32] LABS: RSV AMPLIFICATION NEGATIVE (NEGATIVE)
[2021-04-06 15:37] LABS: ALBUMIN 3.7 GM/DL (3.2-5.2); ALT/SGPT 44 U/L (12-78); BILIRUBIN,TOTAL 1.1 MG/DL (0.2-1.0); BLOOD UREA NITROGEN 9 MG/DL (7-18); CALCIUM LEVEL 9.2 MG/DL (8.5-10.1); CARBON DIOXIDE LEVEL 29 MEQ/L (21-32); CHLORIDE LEVEL 105 MEQ/L (98-107); CREATININE FOR GFR 0.86 MG/DL (0.70-1.30); GLOMERULAR FILTRATION RATE > 60.0 (>56); GLUCOSE, FASTING 94 MG/DL (70-100); SODIUM LEVEL 135 MEQ/L (136-145); TOTAL PROTEIN 8.5 GM/DL (6.4-8.2)
--- OUTSIDE RECORDS SUMMARY | 2021-04-06 17:11 | CCD ---
Author Author [facility] Organization [facility] Address Unknown Phone Unavailable Care Team Providers Care Resident Care Director Name Role Phone LAZARO, ALEJANDRA OTERO Unavailable [...] Unavailable REINDL, ALEJANDRA OTERO Unavailable Unavailable REINDL, ALJEANDRA OTERO Unavailable Unavailable REINDL, ALEJANDRA OTERO Unavailable [...] is protected by Article 27-F of the [facility] Public Health law. If you continue you may have access to information: Regarding HIV / AIDS; Provided by facilities licensed or operated by the [facility] Office of Mental Health; or Provided by the [facility] Office for People With Developmental Disabilities. If such information is present, then the following [facility] mandated warning applies: This information has [...] law may result in a fine or group home sentence or both. A general authorization for the release of medical or other information is NOT sufficient authorization for further disc losure. Encounters Encounter Providers Location Date Indications Data Source(s ) Unknown [address] [facility] [place] [address] 01/02/2021 12:00:00 AM EDT eCW1 ([facility]) Unknown [address] [facility] [place] [address] 11/03/2020 12:00:00 AM EDT eCW1 ([facility]) Outpatient Attender: ALEJANDRA Saleem/Tricia/Erlin/Hanh lion 10/11/2020 09:30:00 AM EDT MEDENT ([facility]) [place] [address] [facility] [address] 09/30/2020 12:00:00 AM EDT eCW1 ([facility]) Unknown [address] [facility] [place] [address] 08/30/2020 12:00:00 AM EDT eCW1 ([facility]) Outpatient 08/24/2020 04:05:36 PM EDT [facility] ([facility]) Outpatient 08/24/2020 04:13:29 AM EDT [facility] ([facility]) Outpatient [address] [facility] [address] 08/18/2020 12:00:00 AM EST eCW1 ([facility]) Immunizations Vaccine Date Status Description Data Source(s) COVID-19 VACC, MRNA(PFIZER)/PF 01/26/2021 12:00:00 AM EDT completed [facility] COVID-19 VACCINE Pfizer 01/26/2021 12:00:00 AM EDT completed [facility] Vaccine Series Complete: YESThis Data wa s Submitted to [facility]. COVID-19 VACCINE Pfizer 01/05/2021 12:00:00 AM EDT completed [facility] Vaccine Series Complete: NOThis Data was Submitted to [facility]. COVID-19 VACC, MRNA(PFIZER)/PF 01/05/2021 12:00:00 AM EDT [...] FOR COLON PREPARTATION INSTRUCTIONS SOLD: 10/14/2020 [facility] magnesium citrate 58.2 MG/ML Oral Solution Magnesium Citrate 10/11/2020 12:00:00 AM EDT active MEDENT ([facility], ) pantoprazole 20 MG Delayed Release Oral Tablet Pantoprazole Sodium 10/11/2020 12:00:00 AM EDT active M EDENT ([facility], ) POLYETHYLENE GLYCOL 3350 142 MG/ML Oral Solution [Miralax] M iralax 10/11/2020 12:00:00 AM EDT active EDENT ([facility], ) 324 mg (65 mg iron) 08/22/2020 12:00:00 AM EDT tablet, delayed release (DR/EC) 30 TAKE ONE TABLET BY MOUTH EVERY DAY TAKE ONE TABL ET BY MOUTH EVERY DAY SOLD: 08/24/2020 [email or web address] Ferrous Sulfate 324 MG Ferrous Sulfate 324 MG 08/22/2020 12:00:00 A M EDT 1.0 {tablet} active Ferrous Sulfate 324 MG eCW1 ([facility]) Ferrous Sulfate 324 MG Ferrous Sulfate 324 MG 08/22/2020 12:00:00 A M EDT 1.0 {tablet} active Ferrous Sulfate 324 MG eCW1 ([facility]) Ferrous Sulfate 324 MG Ferrous Sulfate 324 MG 08/22/2020 12:00:00 A M EDT 1.0 {tablet} active Ferrous Sulfate 324 MG eCW1 ([facility]) Ferrous Sulfate 324 MG Ferrous Sulfate 324 MG 08/22/2020 12:00:00 A M EDT 1.0 {tablet} active Ferrous Sulfate 324 MG eCW1 ([facility]) Ferrous Sulfate 324 MG Ferrous Sulfate 324 MG 08/22/2020 12:00:00 A M EDT 1.0 {tablet} active Ferrous Sulfate 324 MG eCW1 ([facility]) 1 mg 08/18/2020 12:00:00 AM EST tablet [...] type / Coverage type Policy ID Covered democrat ID Covered democrat's relationship to garvin Policy Garvin Plan Information [facility] PHSP [facility] [id number] SP [id number] [facility] Medicaid CI [id number] SELF [id number] SP [id number] [employer] O [id number] S [id number] [employer] [id number] SP [id number] [facility] [id number] SP [id number] EMED[place] [id number] SP [id number] Problems, Conditions, and Diagnoses Code Display Name Description Problem Type Effective Dates Data Source(s) F10.10 [id number] ETOH abuse Problem 08/18/2020 12:00:00 AM ES T eCW1 ([facility]) K76.9 [id number] Chronic liver disease Problem 08/18/2020 12: 00:00 AM EST eCW1 ([facility]) R42 [id number] Dizzy spells Problem 08/18/2020 12:00:00 AM EST eCW1 ([facility]) Z87.19 [id number] History of upper gastrointestinal bleedin g Problem 08/18/2020 12:00:00 AM EST eCW1 ([facility]) F17.200 [id number] Smoker Problem 08/18/2020 12:00:00 AM ES T eCW1 ([facility]) F41.9 [id number] Anxiety Problem 08/18/2020 12:00:00 AM ES T eCW1 ([facility]) Surgeries/Procedures No Information Results ID Date Data Source Immature Platelet Fraction 08/18/2020 12:00:00 AM EST eCW1 ( [facility]) Name Value Range Interpretation Code Description Data Mariia rce(s) Supporting Document(s) 2.5 0.0-10.91 IMMATURE PLATELET FRACTIO N % eCW1 ([facility]) ID Date Data Source HEPATITIS PROFILE ACUTE 08/18/2020 12:00:00 AM EST eCW1 ([facility]) Name Value Range Interpretation Code Description Data Mariia rce(s) Supporting Document(s) NEGATIVE NEGATIVE HEPATITIS B SURFACE ANTIG EN eCW1 ([facility]) 0.0 <0.8 HEPATITIS C VIRUS JOSUE INDEX eC W1 ([facility]) NEGATIVE NEGATIVE HEPATITIS B CORE ANTIBODY IGM eCW1 ([facility]) NEGATIVE NEGATIVE HEPATITIS A ANTIBODY IGM eCW1 ([facility]) ID Date Data Source Comprehensive Metabolic Profile (CMP) 08/18/2020 12:00:00 AM EST eCW1 ([facility]) Name Value Range Interpretation Code Description Data Mariia rce(s) Supporting Document(s) 88 70-100 GLUCOSE, FASTING eCW1 ([facility]) 6 7-18 BLOOD UREA NITROGEN eCW1 ([facility]) 0.82 0.70-1.30 CREATININE FOR GFR eCW1 ([facility]) 134 136-145 SODIUM LEVEL eCW1 ([facility]) > 60.0 >60 GLOMERULAR FILTRATION RATE eCW 1 ([facility]) 3.8 3.5-5.1 POTASSIUM SERUM eCW1 ([facility]) 8.6 8.5-10.1 CALCIUM LEVEL eCW1 ([facility]) 102 98-107 CHLORIDE LEVEL eCW1 ([facility]) 27 21-32 CARBON DIOXIDE LEVEL eCW1 ([facility]) 25 7-37 AST/SGOT eCW1 ([facility]) 79 45-117 ALKALINE PHOSPHATASE eCW1 ([facility]) 16 12-78 ALT/SGPT eCW1 ([facility]) 0.7 0.2-1.0 BILIRUBIN,TOTAL eCW1 ([facility]) 7.7 6.4-8.2 TOTAL PROTEIN eCW1 ([facility]) 0.8 ALBUMIN/GLOBULIN RATIO eCW1 ([facility]) 3.4 3.2-5.2 ALBUMIN eCW1 ([facility]) ID Date Data Source TOTAL IRON BINDING CAPACIT 08/18/2020 12:00:00 AM EST eCW1 ( [facility]) Name Value Range Interpretation Code Description Data Mariia rce(s) Supporting Document(s) 26 65-175 IRON (FE) eCW1 ([facility]) 547 250-450 TOTAL IRON BINDING CAPACI TY eCW1 ([facility]) 4.8 19.7-50.0 PERCENT SATURATION eCW1 ([facility]) ID Date Data Source FERRITIN 08/18/2020 12:00:00 AM EST eCW1 ([facility]) Name Value Range Interpretation Code Description Data Mariia rce(s) Supporting Document(s) 7 26-388 FERRITIN eCW1 ([facility]) ID Date Data Source CBC - Complete Blood Count 08/18/2020 12:00:00 AM EST eCW1 ( [facility]) Name Value Range Interpretation Code Description Data Mariia rce(s) Supporting Document(s) 5.8 4.0-10.0 WHITE BLOOD COUNT eCW1 ([facility]) 8.6 13.5-17.5 HEMOGLOBIN eCW1 ([facility]) 28.8 42.0-52.0 HEMATOCRIT eCW1 ([facility]) 3.71 4.30-6.10 RED BLOOD COUNT eCW1 ([facility]) 77.6 80.0-96.0 MEAN CORPUSCULAR VOLUME e CW1 ([facility]) 29.9 32.0-36.5 MEAN CORPUSCULAR HGB CONC eCW1 ([facility]) 23.2 27.0-33.0 MEAN CORPUSCULAR HEMOGLOB IN eCW1 ([facility]) 100 150-450 PLATELET COUNT, AUTOMATED eCW1 ([facility]) 20.2 11.5-14.5 RED CELL DISTRIBUTION WID TH eCW1 ([facility]) ID Date Data Source URBAN 08/18/2020 12:00:00 AM EST eCW1 ([facility]) Name Value Range Interpretation Code Description Data Mariia rce(s) Supporting Document(s) Negative Negative ANTINUCLEAR ANTIBODIES DI RECT eCW1 ([facility]) ID Date Data Source ALPHA FETOPROTEIN TUMOR QUANT 08/18/2020 12:00:00 AM EST eCW 1 ([facility]) Name Value Range Interpretation Code Description Data Mariia rce(s) Supporting Document(s) 3.4 <8.1 ALPHA FETOPROTEIN TUMOR Q UANT eCW1 ([facility]) ID Date Data Source t-Transglutaminase (tTG) IgG 08/18/2020 12:00:00 AM EST eCW1 ([facility]) Name Value Range Interpretation Code Description Data Mariia rce(s) Supporting Document(s) Tissue transglutaminase IgG Ab [Units/volume] in Serum <2 0-5 TISSUE TRANSGLUTAMINASE IgG eCW1 ([facility]) ID Date Data Source t-Transglutaminase (tTG) IgA 08/18/2020 12:00:00 AM EST eCW1 ([facility]) Name Value Range Interpretation Code Description Data Mariia rce(s) Supporting Document(s) Tissue transglutaminase IgA Ab [Units/volume] in Serum <2 0-3 TISSUE TRANSGLUTAMINASE IgA eCW1 ([facility]) ID Date Data Source [id number] 07/01/2020 11:21:00 AM EST [facility] Name Value Range Interpretation Code Description Data Mariia rce(s) Supporting Document(s) SARS CORONAVIRUS 2 RNA:PRTHR:PT:RESPIRATORY:ORD:PROBE.AMP.TAR Not D etected [facility] This lab was ordered by [facility] a nd reported by [facility]. Procedure Social History Code Duration Value Status Description Data Source(s ) Smoking 08/19/2020 12:00:00 AM EST Current Smoker completed Curre nt Smoker eCW1 ([facility]) Smoking 08/19/2020 12:00:00 AM EST Current Smoker completed Curre nt Smoker eCW1 ([facility]) Smoking 08/19/2020 12:00:00 AM EST Current Smoker completed Curre nt Smoker eCW1 ([facility]) Smoking 08/19/2020 12:00:00 AM EST Current Smoker completed Curre nt Smoker eCW1 ([facility]) Smoking 08/19/2020 12:00:00 AM EST Current Smoker completed Curre nt Smoker eCW1 ([facility]) Vital Signs ID Date Data Source UNK Name Value Range Interpretation Code Description Data Source(s) Systolic blood pressure 115 mm[Hg] 115 mm[Hg] [facility]) Diastolic blood pressure 65 mm[Hg] 65 mm[Hg] [facility] ([facility]) Body height 64 [in_i] 64 [in_i] [facility] ([facility]) 5'4" Body weight 140.00 [lb_av] 140.00 [lb_av] [facility] Body mass index (BMI) [Ratio] 24.0 kg/m2 24.0 k g/m2 [facility] ([facility]) [place] body weight 130 [lb_av] 130 [lb_av] [facility]) Body weight 63.504 kg 63.504 kg [facility] ([facility]) Body surface area Derived from formula 1.68 m2 1.68 m2 [facility] ([facility] ) Body weight 143.2 [lb_av] 143.2 [lb_av] eCW1 ([facility]) Body height 64 [in_i] 64 [in_i] eCW1 ([facility]) Body mass index (BMI) [Ratio] 24.58 kg/m2 24.58 kg/m2 eCW1 ([facility]) Heart rate 90 /min 90 /min eCW1 ([facility]) Respiratory rate 18 /min 18 /min eCW1 ([facility]) Body temperature 98.6 [degF] 98.6 [degF] eCW1 ( [facility]) Systolic blood pressure 102 mm[Hg] 102 mm[Hg] e CW1 ([facility]) Diastolic blood pressure 60 mm[Hg] 60 mm[Hg] eCW1 ([facility]) Patient Treatment Plan of Care Planned Activity Planned Date Details Description Data Source (s) Ferrous Sulfate 324 MG 08/22/2020 12:00:00 AM EDT eCW1 ([facility]) Ferrous Sulfate 324 MG 08/22/2020 12:00:00 AM EDT eCW1 ([facility]) Ferrous Sulfate 324 MG 08/22/2020 12:00:00 AM EDT eCW1 ([facility]) Ferrous Sulfate 324 MG 08/22/2020 12:00:00 AM EDT eCW1 ([facility]) Ferrous Sulfate 324 MG 08/22/2020 12:00:00 AM EDT eCW1 ([facility])
[2021-04-06] MEDS ORDERED: PANT40TA29 PO (17:24)
[2021-04-06] MEDS ORDERED: FOLI1TAB11 PO (17:24)
[2021-04-06] MEDS ORDERED: HOME MED LIST COMPLETE! XX SCH (17:25)
[2021-04-06] MEDS ORDERED: dexameTHASONE 4 MG/ML 1ML VIAL (J1100 PER 1MG) As Ordered ONE (19:21)
[2021-04-06] MEDS ORDERED: propofoL 200 MG/20 ML VIAL As Ordered ONE (19:21)
[2021-04-06] MEDS ORDERED: SUGAMMADEX SODIUM 500 MG/5 ML VIAL (BRIDION) As Ordered ONE (19:21)
[2021-04-06] MEDS ORDERED: ONDANSETRON 4MG/2ML VIAL As Ordered ONE (19:21)
[2021-04-06] MEDS ORDERED: fentaNYL 100 MCG/2 ML INJECTION (J3010) As Ordered ONE (19:21)
[2021-04-06] MEDS ORDERED: KETOROLAC 60MG 2ML VIAL As Ordered ONE (19:21)
[2021-04-06] MEDS ORDERED: SUCCINYLCHOLINE 100 MG/5 ML SYRINGE (J0330) As Ordered ONE (19:21)
[2021-04-06] MEDS ORDERED: LIDOCAINE 2% 100MG/5ML SDV (FOR ANES.) As Ordered ONE (19:21)
[2021-04-06] MEDS ORDERED: ROCURONIUM BROMIDE 50 MG/5 ML VIAL As Ordered ONE (19:21)
[2021-04-06] MEDS ORDERED: MIDAZOLAM INJ 2MG/2ML VIAL (J2250 PER 1MG) As Ordered ONE (19:22)
[2021-04-06] MEDS ORDERED: fentaNYL 100 MCG/2 ML INJECTION (J3010) IV PRN (20:30)
[2021-04-06] MEDS ORDERED: LR 1,000 ML IV SCH (20:30)
[2021-04-06] MEDS ORDERED: ONDANSETRON 4MG/2ML VIAL IV PRN (20:30)
[2021-04-06] MEDS ORDERED: PROMETHAZINE INJ 25 MG/ML VIAL (J2550) IV PRN (20:30)
[2021-04-06 20:50] VITALS: BP 118/59
--- NOTE | 2021-04-06 20:59 | HPE ---
HISTORY AND PHYSICAL DATE OF ADMISSION: 04/06/2021 CHIEF COMPLAINT: Food stuck in throat. HISTORY OF PRESENT ILLNESS: The patient is a 50-year-old male who presents with a history of alcohol disease with what sounds like difficulty with large vessels in his esophagus in the past. He has had multiple EGDs and was told that the problems were fixed. He has had difficulty with swallowing in the past as well, with food getting stuck, but he is normally able to give it some time and eventually pass it on its own. This time last evening around 10:00 p.m., he was eating some chicken breast. He felt it get stuck in his throat and he has not had any relief of his symptoms since. He is unable to keep is secretions down at this time. He has tried fluid challenges in the E.R. and has failed. Therefore I was called to evaluate for possible endoscopy. PAST MEDICAL HISTORY: The patient's past medical history is significant for: 1. Alcoholism. 2. Esophagitis. 3. Possible esophageal varices, but he is not completely sure of that history. PAST SURGICAL HISTORY: The patient's past surgical history is significant for: 1. EGDs. SOCIAL HISTORY: The patient smokes a pack a day. ALLERGIES: None. HOME MEDICATIONS: Please see Med Rec. REVIEW OF SYSTEMS: Pertinent positives and negatives as stated in the HPI. PHYSICAL EXAMINATION: GENERAL APPEARANCE: Alert and oriented x3, in no acute distress. VITAL SIGNS: Temperature 98.2, pulse 101, respirations 18, blood pressure 116/77, pulse oximetry 100% on room air. HEENT: Pupils are equal, round and reactive to light and accommodation. HEART: S1, S2, regular rate and rhythm. LUNGS: Clear to auscultation bilaterally. ABDOMEN: Soft, nontender, nondistended. EXTREMITIES: No clubbing, cyanosis, or edema. LABORATORY STUDIES: White count 5.7, hemoglobin 9.3, platelet count 118. ASSESSMENT AND PLAN: The patient is a 50-year-old male with likely esophageal food impaction with chicken that started last evening. Recommendation is to proceed with an EGD. The risks and benefits of the procedure not limited to but including bleeding, infection, perforation of the esophagus and need for further procedure were discussed in detail with the patient. Informed consent was obtained. The procedure was explained. Postoperatively, as long as everything goes as planned, he will be able to be discharged home directly from the PACU from his procedure.
--- NOTE | 2021-04-07 09:16 | RO ---
OPERATIVE NOTE DATE OF OPERATION: 04/06/2021 PREOPERATIVE DIAGNOSIS: Esophageal food impaction or esophageal obstruction. POSTOPERATIVE DIAGNOSIS: Esophageal food impaction or esophageal obstruction with esophagitis. PROCEDURE: EGD with removal of esophageal food bolus. SURGEON: Luis Nickerson DO KITCHEN MANAGER: None. ANESTHESIA: General. EBL: Minimal. COMPLICATIONS: None. INDICATIONS FOR PROCEDURE: The patient is a 50-year-old male unable to swallow because he had chicken stuck in his throat last evening. Recommendation was to proceed with upper endoscopy with removal of the obstruction. Risks and benefits of the procedure not limited to but including bleeding, infection, perforation, need for further surgery were discussed in detail with the patient and informed consent was obtained, procedure was planned. DESCRIPTION OF PROCEDURE: The patient was brought back to operating room 1. After sufficient general anesthesia time out was done to confirm proper patient, proper procedure. The endoscope was passed through the oropharynx, down the esophagus and into the stomach with minimal resistance. There was a very small piece of chicken identified that was able to be pushed through by passing the scope down. Scope used to examine, there was a small amount of bleeding on retroflexion coming from the GE junction. Scope was then slowly withdrawn back up into the esophagus. The GE junction appeared to be normal from about the mid esophagus up to the proximal esophagus. There appeared to be slight narrowing as well as inflammation and esophagitis. No signs of any masses or polyps of any kind and no signs of any distinct strictures but there was definitely inflammation and bleeding with very friable mucosa. Scope was then completely removed. The patient was extubated, awakened from anesthesia and sent to PACU in stable condition. Recommendation postop is to follow up with his GI doctor, likely will benefit from repeat upper endoscopy, possibly some biopsies in the near future to figure out the cause of this.
== END 2021-04-06 21:40 | disposition home or self-care (01) ==
LOC: M ED 13:51 → M SDC 17:07
PROVIDERS: ATTEND Surgery
DX: T18.128A Food in esophagus causing other injury, initial encounter (principal); Y92.89 Other specified places as the place of occurrence of the external cause; K20.91 Esophagitis, unspecified with bleeding; K22.2 Esophageal obstruction; F10.20 Alcohol dependence, uncomplicated; I10 Essential (primary) hypertension; K21.9 Gastro-esophageal reflux disease without esophagitis; F17.210 Nicotine dependence, cigarettes, uncomplicated
CPT/HCPCS: 43247; 80053; 85025; 87631; 96374; 99284; J0330; J1100; J1610; J1885; J2250; J2405; J3010

== ENCOUNTER 2021-06-14 13:51 | Emergency (ER) | payer MEDICAID, OTHER ==
[~2021-06-14] VITALS: Ht 162.6 cm; Wt 63.6 kg
[~2021-06-14 13:51] MED LIST changes: +CARV3.12 PO; +FOLI1TAB11 PO
[2021-06-14] MEDS ORDERED: KETOROLAC 60MG 2ML VIAL IM ONE (18:25)
[2021-06-14] MEDS ORDERED: AUGMENTIN 875 MG TAB PO ONE (18:25)
[2021-06-14] MEDS ORDERED: AUGM875T28 PO (18:53)
[2021-06-14] MEDS ORDERED: NAPR-837 PO (18:53)
[2021-06-14] MEDS ORDERED: HYDR-3713 PO (18:53)
[2021-06-14] MEDS ORDERED: MAGICMW SSP (18:53)
[2021-06-14 19:07] VITALS: BP 138/67
== END 2021-06-14 19:47 | disposition home or self-care (01) ==
LOC: M ED 13:51
DX: K02.9 Dental caries, unspecified (principal); K04.7 Periapical abscess without sinus; I10 Essential (primary) hypertension; K21.9 Gastro-esophageal reflux disease without esophagitis; Z79.899 Other long term (current) drug therapy; F17.210 Nicotine dependence, cigarettes, uncomplicated
CPT/HCPCS: 96372; 99283; J1885

== ENCOUNTER 2021-09-19 08:16 | Emergency (ER) | payer MEDICAID, OTHER ==
[~2021-09-19] VITALS: Ht 162.6 cm; Wt 65.3 kg
[~2021-09-19 08:16] MED LIST changes: +AUGM875T28 PO; +HYDR-3713 PO; +MAGICMW SSP; +NAPR-837 PO
[2021-09-19 08:17] VITALS: BP 115/56
[2021-09-19] MEDS ORDERED: IBUP200T46 PO (08:25)
[2021-09-19 12:31] LABS: BASO % 0.2 % (0.0-1.0); EOS # 0.1 10^3/uL (0.0-0.5); HEMATOCRIT 30.7 % (42.0-52.0); HEMOGLOBIN 9.1 g/dl (13.5-17.5); LYMPH # 1.5 10^3/uL (1.5-5.0); LYMPH % 28.7 % (24.0-44.0); MEAN CORPUSCULAR HEMOGLOBIN 22.6 pg (27.0-33.0); MEAN CORPUSCULAR HGB CONC 29.6 g/dl (32.0-36.5); MEAN CORPUSCULAR VOLUME 76.4 fl (80.0-96.0); MONO # 0.5 10^3/uL (0.0-0.8); MONO % 9.3 % (2.0-8.0); NEUTROPHILS % 59.2 % (36.0-66.0); RED BLOOD COUNT 4.02 10^6/uL (4.30-6.10); WHITE BLOOD COUNT 5.1 10^3/uL (4.0-10.0)
[2021-09-19 13:03] LABS: PLATELET COUNT, AUTOMATED 90 10^3/uL (150-450)
[2021-09-19 13:11] LABS: ERYTHROCYTE SEDIMENTATION RATE 37 mm/hr (0-20)
[2021-09-19] MEDS ORDERED: AMOX875T2 PO (13:32)
[2021-09-19 13:48] LABS: BLOOD UREA NITROGEN 7 MG/DL (7-18); C REACTIVE PROTEIN QUANTITATIV 0.45 MG/DL (0.00-0.30); CALCIUM LEVEL 7.4 MG/DL (8.5-10.1); CARBON DIOXIDE LEVEL 20 MEQ/L (21-32); CHLORIDE LEVEL 111 MEQ/L (98-107); CREATININE FOR GFR 0.73 MG/DL (0.70-1.30); GLOMERULAR FILTRATION RATE > 60.0 (>56); GLUCOSE, FASTING 80 MG/DL (70-100); POTASSIUM SERUM 4.1 MEQ/L (3.5-5.1); SODIUM LEVEL 138 MEQ/L (136-145)
== END 2021-09-19 13:42 | disposition home or self-care (01) ==
LOC: M ED 08:16
DX: K04.7 Periapical abscess without sinus (principal)

== ENCOUNTER 2022-02-13 21:58 | Emergency (ER) | payer MEDICAID, OTHER ==
[~2022-02-13] VITALS: Ht 162.6 cm; Wt 54.4 kg
[~2022-02-13 21:58] MED LIST changes: +AMOX875T2 PO; +IBUP200T46 PO
[2022-02-13] MEDS ORDERED: NS 1,000 ML IV ONE ×2 (22:25)
[2022-02-13 22:51] LABS: BASO % 0.5 % (0.0-1.0); EOS # 0.1 10^3/uL (0.0-0.5); EOS % 1.8 % (0.0-3.0); HEMATOCRIT 23.9 % (42.0-52.0); LYMPH # 1.6 10^3/uL (1.5-5.0); LYMPH % 24.3 % (24.0-44.0); MEAN CORPUSCULAR HEMOGLOBIN 23.2 pg (27.0-33.0); MEAN CORPUSCULAR HGB CONC 28.9 g/dl (32.0-36.5); MEAN CORPUSCULAR VOLUME 80.2 fl (80.0-96.0); MONO # 0.5 10^3/uL (0.0-0.8); MONO % 7.5 % (2.0-8.0); NEUTROPHILS # 4.2 10^3/uL (1.5-8.5); NEUTROPHILS % 64.7 % (36.0-66.0); PLATELET COUNT, AUTOMATED 161 10^3/uL (150-450); RED BLOOD COUNT 2.98 10^6/uL (4.30-6.10); WHITE BLOOD COUNT 6.5 10^3/uL (4.0-10.0)
[2022-02-13] MEDS ORDERED: OCTREOTIDE ACETATE 1,200 MCG in NS 238.8 ML IV SCH (22:55)
[2022-02-13] MEDS ORDERED: cefTRIAXone SOD 1 GM in D5W MINI-BAG PLUS 50 ML IV ONE (22:55)
[2022-02-13] MEDS ORDERED: PANTOPRAZOLE SODIUM 40 MG in D5W 50 ML IV SCH (22:55)
[2022-02-13] MEDS ORDERED: ONDANSETRON 4MG 2ML VIAL IV ONE (22:55)
[2022-02-13 23:05] LABS: HEMOGLOBIN 6.9 g/dl (13.5-17.5)
[2022-02-13 23:25] LABS: ALBUMIN 2.8 GM/DL (3.2-5.2); ALT/SGPT 12 U/L (12-78); BILIRUBIN,DIRECT 0.2 MG/DL (0.0-0.2); BILIRUBIN,TOTAL 0.4 MG/DL (0.2-1.0); BLOOD UREA NITROGEN 13 MG/DL (7-18); CALCIUM LEVEL 8.3 MG/DL (8.5-10.1); CARBON DIOXIDE LEVEL 19 MEQ/L (21-32); CHLORIDE LEVEL 104 MEQ/L (98-107); CREATININE FOR GFR 1.24 MG/DL (0.70-1.30); GLOMERULAR FILTRATION RATE > 60.0 (>56); GLUCOSE, FASTING 141 MG/DL (70-100); POTASSIUM SERUM 3.7 MEQ/L (3.5-5.1); SODIUM LEVEL 135 MEQ/L (136-145); TOTAL PROTEIN 6.6 GM/DL (6.4-8.2)
[2022-02-13 23:43] LABS: INR 1.34; PARTIAL THROMBOPLASTIN TIME 31.7 SECONDS (25.9-37.0)
[2022-02-14] VITALS (7 sets, daily range): BP systolic 85–116; BP diastolic 50–64
[2022-02-14 01:07] LABS: RSV AMPLIFICATION NEGATIVE (NEGATIVE)
== END 2022-02-14 02:40 | disposition short-term general hospital (02) ==
LOC: M ED 21:58 → EDSEX 21:58 → EDBD 21:58 → M ED 02-14 02:40
DX: I85.01 Esophageal varices with bleeding (principal); I10 Essential (primary) hypertension; K74.60 Unspecified cirrhosis of liver; K21.9 Gastro-esophageal reflux disease without esophagitis; Z79.899 Other long term (current) drug therapy; F17.200 Nicotine dependence, unspecified, uncomplicated
CPT/HCPCS: 36430; 71045; 80047; 80053; 82248; 83605; 85025; 85610; 85730; 86850; 86900; 86901; 86920; 87631; 93005; 93041; 94760; 96361; 96365; 96368; 99285; C9113; J0696; J2354; J2405; P9016

== ENCOUNTER 2022-03-05 23:39 | Emergency (ER) | payer OTHER ==
[~2022-03-05] VITALS: Ht 162.6 cm; Wt 56.0 kg
[2022-03-06 00:39] LABS: BASO % 0.4 % (0.0-1.0); EOS # 0.1 10^3/uL (0.0-0.5); EOS % 2.5 % (0.0-3.0); HEMATOCRIT 29.2 % (42.0-52.0); HEMOGLOBIN 8.7 g/dl (13.5-17.5); LYMPH % 20.3 % (24.0-44.0); MEAN CORPUSCULAR HEMOGLOBIN 24.8 pg (27.0-33.0); MEAN CORPUSCULAR HGB CONC 29.8 g/dl (32.0-36.5); MEAN CORPUSCULAR VOLUME 83.2 fl (80.0-96.0); MONO # 0.5 10^3/uL (0.0-0.8); MONO % 9.4 % (2.0-8.0); NEUTROPHILS # 3.3 10^3/uL (1.5-8.5); NEUTROPHILS % 67.2 % (36.0-66.0); RED BLOOD COUNT 3.51 10^6/uL (4.30-6.10); WHITE BLOOD COUNT 4.9 10^3/uL (4.0-10.0)
[2022-03-06 00:53] LABS: INR 0.95; PROTHROMBIN TIME 13.1 SECONDS (12.7-14.5)
[2022-03-06 00:54] LABS: PLATELET COUNT, AUTOMATED 85 10^3/uL (150-450)
[2022-03-06 00:54] LABS: PARTIAL THROMBOPLASTIN TIME 28.1 SECONDS (25.9-37.0)
[2022-03-06 00:59] LABS: ALBUMIN 3.1 GM/DL (3.2-5.2); ALT/SGPT 24 U/L (12-78); AMYLASE 58 U/L (25-115); BILIRUBIN,DIRECT 0.2 MG/DL (0.0-0.2); BILIRUBIN,TOTAL 0.5 MG/DL (0.2-1.0); BLOOD UREA NITROGEN 8 MG/DL (7-18); CALCIUM LEVEL 8.9 MG/DL (8.5-10.1); CARBON DIOXIDE LEVEL 26 MEQ/L (21-32); CHLORIDE LEVEL 102 MEQ/L (98-107); CREATININE FOR GFR 0.79 MG/DL (0.70-1.30); GLOMERULAR FILTRATION RATE > 60.0 (>56); GLUCOSE, FASTING 105 MG/DL (70-100); LIPASE 135 U/L (73-393); POTASSIUM SERUM 4.1 MEQ/L (3.5-5.1); SODIUM LEVEL 134 MEQ/L (136-145); TOTAL PROTEIN 7.7 GM/DL (6.4-8.2)
[2022-03-06 01:00] LABS: CK-MB VALUE MASS < 1.0 NG/ML (<3.6); CPK CREATINE PHOSPHOKINASE 79 U/L (39-308); MB/CK RELATIVE INDEX 1.27 (< OR =4)
[2022-03-06] MEDS ORDERED: ACET325C5 PO (02:01)
[2022-03-06] MEDS ORDERED: TRAM50TA2 PO (02:01)
[2022-03-06 02:13] VITALS: BP 117/64
== END 2022-03-06 02:18 | disposition home or self-care (01) ==
LOC: M ED 23:39
DX: R22.1 Localized swelling, mass and lump, neck (principal); I10 Essential (primary) hypertension; Z79.899 Other long term (current) drug therapy

== ENCOUNTER 2022-04-02 12:24 | Emergency (ER) | payer OTHER ==
[~2022-04-02] VITALS: Ht 162.6 cm; Wt 50.9 kg
[2022-04-02 12:24] VITALS: BP 108/66
[~2022-04-02 12:24] MED LIST changes: +ACET325C5 PO; +TRAM50TA2 PO
[2022-04-02] MEDS ORDERED: NS 1,000 ML IV ONE (18:50)
[2022-04-02] MEDS ORDERED: KETOROLAC 30 MG/ML 1ML VIAL IV ONE (18:50)
[2022-04-02] MEDS ORDERED: ISOVUE-370 76% 100ML VIAL As Ordered ONE (19:24)
[2022-04-02 19:31] LABS: EOS # 0.1 10^3/uL (0.0-0.5); EOS % 1.2 % (0.0-3.0); HEMATOCRIT 28.3 % (42.0-52.0); HEMOGLOBIN 8.5 g/dl (13.5-17.5); LYMPH # 0.9 10^3/uL (1.5-5.0); LYMPH % 15.2 % (24.0-44.0); MEAN CORPUSCULAR HEMOGLOBIN 25.8 pg (27.0-33.0); MEAN CORPUSCULAR VOLUME 85.8 fl (80.0-96.0); MONO # 0.6 10^3/uL (0.0-0.8); MONO % 9.9 % (2.0-8.0); NEUTROPHILS # 4.4 10^3/uL (1.5-8.5); NEUTROPHILS % 73.2 % (36.0-66.0); PLATELET COUNT, AUTOMATED 117 10^3/uL (150-450); WHITE BLOOD COUNT 6.1 10^3/uL (4.0-10.0)
[2022-04-02 20:18] LABS: ERYTHROCYTE SEDIMENTATION RATE 71 mm/hr (0-20)
[2022-04-02] MEDS ORDERED: HYDROcodone/APAP LIQUID 7.5-325MG 15ML UDC (LORTAB ELIXIR) PO ONE (21:55)
[2022-04-02] MEDS ORDERED: HYDR1SOL PO (21:57)
== END 2022-04-02 22:25 | disposition home or self-care (01) ==
LOC: M ED 12:24
DX: C76.0 Malignant neoplasm of head, face and neck (principal); I10 Essential (primary) hypertension; K21.9 Gastro-esophageal reflux disease without esophagitis; F17.200 Nicotine dependence, unspecified, uncomplicated; F12.10 Cannabis abuse, uncomplicated; Z79.899 Other long term (current) drug therapy
CPT/HCPCS: 70487; 80047; 83605; 85025; 85652; 86140; 87040; 96361; 96374; 99283; J1885; Q9967

== ENCOUNTER → 2022-05-08 | Outpatient (POV) | payer OTHER ==
[~2022-05-08] VITALS: Ht 162.6 cm; Wt 47.7 kg
[~2022-05-08] MED LIST changes: +HYDR1SOL PO; +HYDR5SYP11 PO
[2022-05-08 09:35] VITALS: BP 117/70
== END ==
LOC: M IRPOV 09:21
PROVIDERS: ATTEND Radiology Diagnostic Radiology
DX: Z43.1 Encounter for attention to gastrostomy (principal)

== ENCOUNTER → 2022-05-24 | Outpatient (CLI) | payer OTHER ==
[~2022-05-24] MED LIST changes: +FENT1DIS14 TOP; +HYDR1LIQ PO; +LIDOCAINE 1% MDV 20ML VIAL As Ordered ONE; +MIDAZOLAM INJ 2MG/2ML VIAL (J2250 PER 1MG) As Ordered ONE; +NS 1,000 ML IV SCH; +ceFAZolin 2 GM/D5W 50 ML IV BAG As Ordered ONE; +ceFAZolin SOD 2 GM in IV 1 EA IV ONE; +diphenhydrAMINE 50MG/ML VIAL As Ordered ONE; +fentaNYL 100 MCG/2 ML INJECTION As Ordered ONE
[2022-05-24 16:50] VITALS: BP 144/86
== END ==
LOC: M IRPRO 11:44
PROVIDERS: ATTEND Specialist
DX: C01 Malignant neoplasm of base of tongue (principal)
CPT/HCPCS: 36561; 87635; 99152; 99153; C1769; C1788; C1894; J0690; J1642; J1644; J2250; J3010